=== PATIENT | female | born 1990 | race Hispanic/Latino ===

== ENCOUNTER 2018-10-31 17:54 | Emergency (ER) | payer SELFPAY ==
--- OUTSIDE RECORDS SUMMARY | 2018-10-31 17:56 | XMS REPORT ---
:1990 [facility] Address [address] [place] [address] Care Team Providers Name Role Phone Unavailable Unavailable Unavailable Problems This patient has no known problems. Allergies, Adverse Reactions, Alerts This patient has no known allergies or adverse reactions. Medications This patient has no known medications.
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
== END 2018-10-31 20:00 | disposition home or self-care (01) ==
LOC: ER 17:54
DX: O26.893 Other specified pregnancy related conditions, third trimester (principal); Z3A.35 35 weeks gestation of pregnancy
CPT/HCPCS: 99281

== ENCOUNTER 2018-11-01 19:00 | Emergency (ER) | payer SELFPAY ==
--- OUTSIDE RECORDS SUMMARY | 2018-11-01 19:02 | XMS REPORT ---
:1990 [facility] Address [address] [place] [address] Care Team Providers Name Role Phone Unavailable Unavailable Unavailable Problems This patient has no known problems. Allergies, Adverse Reactions, Alerts This patient has no known allergies or adverse reactions. Medications This patient has no known medications.
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
== END 2018-11-01 22:00 | disposition home or self-care (01) ==
LOC: ER 19:00
DX: O26.893 Other specified pregnancy related conditions, third trimester (principal); R07.9 Chest pain, unspecified; Z3A.30 30 weeks gestation of pregnancy
CPT/HCPCS: 71045; 99284

== ENCOUNTER 2021-12-02 00:50 | Emergency (ER) | payer OTHER, SELFPAY ==
[2021-12-02] MEDS ORDERED: AZITHROMYCIN 250 MG TAB ONE (01:34)
[2021-12-02] MEDS ORDERED: IBUPROFEN 200 MG TAB PO ONE (01:34)
[2021-12-02] MEDS ORDERED: IBUPROFEN 400 MG TAB ONE (01:35)
--- NOTE | 2021-12-02 02:51 | ER ---
Nurse's Notes [facility] Name: Ki Portillo Age: 30 yrs Sex: Female : 1990 Arrival Date: 12/02/2021 Time: 00:53 Bed 25 Private MD: Diagnosis: Coronavirus infection, unspecified;SARS-associated coronavirus as the cause of diseases classified elsewhere;Fever, unspecified;Acute pharyngitis, unspecified;Acute upper respiratory infection, unspecified Presentation: 12/02 01:05 Chief complaint: Patient states: "I am having body aches, and sore throat, and a runny as6 nose". Coronavirus screen: At this time, the client does not indicate any symptoms associated with coronavirus-19. Coronavirus screen: Client presents with at least one sign or symptom that may indicate coronavirus-19. At this time, the client does not indicate any symptoms associated with coronavirus-19. Ebola Screen: No symptoms or risks identified at this time. Initial Sepsis Screen: Does the patient meet any 2 criteria? No. Patient's initial sepsis screen is negative. Does the patient have a suspected source of infection? No. Patient's initial sepsis screen is negative. Risk Assessment: Do you want to hurt yourself or someone else? Patient reports no desire to harm self or others. Onset of symptoms was November 30, 2021. 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 - Social history:: Smoking status: Patient denies any tobacco usage or history of. Screenin:25 Abuse screen: Denies threats or abuse. Denies injuries from another. Nutritional as6 screening: No deficits noted. Tuberculosis screening: No symptoms or risk factors identified. Fall Risk None identified. Assessment: 01:25 General: Appears in no apparent distress. Behavior is calm, cooperative. Pain: as6 Complains of pain in generalized. Neuro: Level of Consciousness is awake, alert. Respiratory: Respiratory effort is even, unlabored. EENT: Reports nasal congestion. 02:50 Reassessment: Patient states feeling better. Patient states symptoms have improved. tw5 General: Appears in no apparent distress. Vital Signs: 01:05 BP 113 / 71; Pulse 92; Resp 19 S; Temp 98.6(O); Pulse Ox 97% on R/A; Weight 63.5 kg as6 (R); Height 5 ft. 1 in. (154.94 cm) (R); Pain 8/10; 01:05 Body Mass Index 26.45 (63.50 kg, 154.94 cm) as6 ED Course: 00:53 Patient arrived in ED. ja2 01:09 Triage completed. 01:10 Arm band placed on. 01:13 He Fischer, RN is Primary Nurse. 01:13 Jeison Sun MD is Attending Physician. [facility] 01:26 Bed in low position. Call light in reach. 03:01 No provider procedures requiring assistance completed. Patient did not have IV access tw5 during this emergency room visit. Administered Medications: 01:28 Drug: Zithromax (azithromycin) 500 mg Route: PO; as6 02:51 Follow up: Response: No adverse reaction tw 01:28 Drug: Motrin (ibuprofen) 600 mg Route: PO; as 02:51 Follow up: Response: No adverse reaction tw 02:51 Drug: Pepcid (famotidine) 40 mg Route: PO; tw 03:02 Follow up: Response: No adverse reaction tw 02:51 Drug: Aspirin 81 mg Route: PO; tw 03:02 Follow up: Response: No adverse reaction tw Medication: 03:01 VIS not applicable for this client. tw5 Outcome: 02:50 Discharge ordered by . shamika 03:01 Discharged to home ambulatory. tw 03:01 Condition: improved 03:01 Discharge instructions given to patient, Instructed on discharge instructions, follow up and referral plans. Demonstrated understanding of instructions, follow-up care, medications, Prescriptions given X 3. 03:02 Patient left the ED. tw5 Signatures: Jeison Sun MD MD cha Alexander, Jessica ja2 Wood, Tiffany tw5 He Fischer, RN RN as6
--- NOTE | 2021-12-02 02:52 | EDPHYS ---
Physician Documentation [facility] Name: Ki Portillo Age: 30 yrs Sex: Female : 1990 Arrival Date: 12/02/2021 Time: 00:53 Bed 25 Private MD: DIXIE Physician Jeison Sun HPI: 12/02 02:43 This 30 yrs old Female presents to ER via Ambulatory with complaints of Sore shamika Throat, Body Aches, Fever, Chest Congestion, Low Back Pain, Chest Pain. 02:43 The patient presents with sore throat. The patient describes throat pain as constant. shamika Onset: The symptoms/episode began/occurred 1 day(s) ago. Severity of symptoms: At their worst the symptoms were mild, in the emergency department the symptoms are unchanged. Modifying factors: The symptoms are alleviated by. Associated signs and symptoms: The patient has no apparent associated signs or symptoms. The patient has not experienced similar symptoms in the past. 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 - Social history:: Smoking status: Patient denies any tobacco usage or history of. ROS: 02:44 Constitutional: Negative for fever, chills, and weight loss, Eyes: Negative for injury, shamika pain, redness, and discharge, Neck: Negative for injury, pain, and swelling, Cardiovascular: Negative for chest pain, palpitations, and edema, Abdomen/GI: Negative for abdominal pain, nausea, vomiting, diarrhea, and constipation, Back: Negative for injury and pain, : Negative for injury, bleeding, discharge, and swelling, MS/Extremity: Negative for injury and deformity, Skin: Negative for injury, rash, and discoloration, Neuro: Negative for headache, weakness, numbness, tingling, and seizure. 02:44 ENT: Positive for nasal discharge, sore throat. Exam: 02:44 Constitutional: This is a well developed, well nourished patient who is awake, alert, shamika and in no acute distress. Head/Face: Normocephalic, atraumatic. Eyes: Pupils equal round and reactive to light, extra-ocular motions intact. Lids and lashes normal. Conjunctiva and sclera are non-icteric and not injected. Cornea within normal limits. Periorbital areas with no swelling, redness, or edema. Neck: Trachea midline, no thyromegaly or masses palpated, and no cervical lymphadenopathy. Supple, full range of motion without nuchal rigidity, or vertebral point tenderness. No Meningismus. Chest/axilla: Normal chest wall appearance and motion. Nontender with no deformity. No lesions are appreciated. Cardiovascular: Regular rate and rhythm with a normal S1 and S2. No gallops, murmurs, or rubs. Normal PMI, no JVD. No pulse deficits. Respiratory: Lungs have equal breath sounds bilaterally, clear to auscultation and percussion. No rales, rhonchi or wheezes noted. No increased work of breathing, no retractions or nasal flaring. Abdomen/GI: Soft, non-tender, with normal bowel sounds. No distension or tympany. No guarding or rebound. No evidence of tenderness throughout. Back: No spinal tenderness. No costovertebral tenderness. Full range of motion. Skin: Warm, dry with normal turgor. Normal color with no rashes, no lesions, and no evidence of cellulitis. MS/ Extremity: Pulses equal, no cyanosis. Neurovascular intact. Full, normal range of motion. Neuro: Awake and alert, GCS 15, oriented to person, place, time, and situation. Cranial nerves II-XII grossly intact. Motor strength 5/5 in all extremities. Sensory grossly intact. Cerebellar exam normal. Normal gait. 02:44 ENT: Posterior pharynx: Tonsils: are normal in appearance, Uvula: midline, erythema, swelling, is not appreciated, erythema, that is mild, exudate, is not appreciated, peritonsillar mass, is not appreciated, pooling of secretions, is not appreciated. Vital Signs: 01:05 BP 113 / 71; Pulse 92; Resp 19 S; Temp 98.6(O); Pulse Ox 97% on R/A; Weight 63.5 kg as6 (R); Height 5 ft. 1 in. (154.94 cm) (R); Pain 8/10; 01:05 Body Mass Index 26.45 (63.50 kg, 154.94 cm) as6 MDM: 01:13 Patient medically screened. shamika 02:46 Differential diagnosis: Allergic rhinitis, bronchitis, viral Infection, bacterial shamika infection, URI, bronchitis, UTI, group A strep tonsillitis, influenza, peritonsillar abscess pharyngitis, tonsillitis, upper respiratory infection, uvulitis. Differential Diagnosis sepsis. Data reviewed: vital signs, nurses notes, lab test result(s), CBC, electrolytes, hepatic panel. Data interpreted: case management director: rate is 92 beats/min, rhythm is regular, Pulse oximetry: on room air is 91 %. 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 12/02 01:11 Order name: Flu; Complete Time: 02:32 as6 12/02 01:11 Order name: Strep; Complete Time: 02:32 as6 12/02 01:16 Order name: Group A Streptococcus Rapid Sc; Complete Time: 02:32 EDMS 12/02 02:16 Order name: Throat Culture EDMS Administered Medications: 01:28 Drug: Zithromax (azithromycin) 500 mg Route: PO; as6 02:51 Follow up: Response: No adverse reaction tw5 01:28 Drug: Motrin (ibuprofen) 600 mg Route: PO; as6 02:51 Follow up: Response: No adverse reaction tw5 02:51 Drug: Pepcid (famotidine) 40 mg Route: PO; tw5 03:02 Follow up: Response: No adverse reaction tw5 02:51 Drug: Aspirin 81 mg Route: PO; tw5 03:02 Follow up: Response: No adverse reaction tw5 Disposition Summary: 12/02/21 02:50 Discharge Ordered Location: Home shamika Problem: new shamika Symptoms: have improved shamika Condition: Stable shamika Diagnosis - Coronavirus infection, unspecified shamika - SARS-associated coronavirus as the cause of diseases classified elsewhere shamika - Fever, unspecified shamika - Acute pharyngitis, unspecified shamika - Acute upper respiratory infection, unspecified shamika Followup: shamika - With: Private Physician - When: 2 - 3 days - Reason: Recheck today's complaints, Continuance of care, Re-evaluation by your physician Discharge Instructions: - Discharge Summary Sheet [facility] - Pharyngitis shamika - Upper Respiratory Infection, Adult shamika - Cool Mist Vaporizer shamika - Upper Respiratory Infection, Adult, [id number] shamika - Aspirin and Your Heart shamika - Cough, Adult shamika - Sore Throat, [id number] shamika - Fever, Adult, Bfqw-[id number]-Omst shamika - COVID-19 [facility] - COVID-19 Frequently Asked Questions [facility] - Things to Know about the COVID-19 Pandemic - [facility] - 10 Things You Can Do to Manage Your COVID-19 Symptoms at Home - [facility] - Viral Illness, Adult [facility] - COVID-19: Quarantine vs. Isolation - [facility] - Prevent the Spread of COVID-19 if You Are Sick - [facility] Forms: - Medication Reconciliation Form [facility] - Thank You Letter [facility] - Antibiotic Education [facility] - Prescription Opioid Use [facility] Prescriptions: - Pepcid 20 mg Oral Tablet - take 1 tablet by ORAL route every 12 hours for 21 days; 42 tablet; Refills: 0, [facility] Product Selection Permitted - Zithromax Z-Stiven 250 mg Oral Tablet - take 1 tablet by ORAL route as directed for 5 days Day 1 - take two (2) tablets shamika one time. Day 2, 3, 4 , 5 take one (1) tablet once daily.; 6 tablet; Refills: 0, Product Selection Permitted - Tessalon Perles 100 mg Oral Capsule - take 2 capsule by ORAL route every 8 hours As needed; 36 capsule; Refills: 0, [facility] Product Selection Permitted Signatures: Dispatcher [employer] Jeison Carranza MD MD cha Wood, Tiffany tw5 He Fischer RN RN as6 Corrections: (The following items were deleted from the chart) 01:31 01:15 SARS-COV-2 Antigen Rapid+I.LAB.BRZ ordered. INES CHACON
[2021-12-02] MEDS ORDERED: ASPIRIN EC 81 MG TAB PO ONE (02:56)
[2021-12-02] MEDS ORDERED: FAMOTIDINE 20 MG TAB ONE (02:57)
[2021-12-02 05:47] VITALS: BP 113/71; TEMP 98.6; O2SAT 97
== END 2021-12-02 03:02 | disposition home or self-care (01) ==
LOC: ER 00:50
DX: U07.1 COVID-19 (principal); J02.9 Acute pharyngitis, unspecified
CPT/HCPCS: 87070; 87081; 87804; 99283; U0003

== ENCOUNTER 2022-05-01 18:38 | Emergency (ER) | payer SELFPAY ==
--- NOTE | 2022-05-01 20:02 | RAD REPORT ---
EXAM DESCRIPTION: RAD - Foot Left 3 View - 05/01/2022 7:52 pm CLINICAL HISTORY: Left Foot pain FINDINGS: No fracture or dislocation is seen.
[2022-05-01 20:17] LABS: Urine Blood Negative (Negative); Urine Glucose Negative (Negative); Urine Protein Negative (Negative); Urine Specific Gravity >=1.030 (1.005-1.030); Urine pH 5.5 (5.0-7.0)
[2022-05-01 21:02] LABS: Specific Gravity 1.027 (1.005-1.030); Urine Bacteria None Seen /HPF (<20); Urine Bilirubin NEGATIVE (Negative); Urine Blood Negative (Negative); Urine Clarity Clear (Clear); Urine Color Light-Yellow (Yellow); Urine Glucose NEGATIVE (Negative); Urine Mucus 1+ /HPF (None Seen); Urine Protein NEGATIVE (Negative); Urine RBC <5 /HPF (None Seen); Urine Urobilinogen Normal (Normal); Urine pH 5.5 (5.0-7.0)
[2022-05-01 21:04] LABS: Urine Specific Gravity/Preg >1.030 (1.005-1.030)
--- NOTE | 2022-05-01 21:08 | ER ---
Nurse's Notes [facility] Name: Ki Portillo Age: 31 yrs Sex: Female : 1990 Arrival Date: 05/01/2022 Time: 18:40 Bed 15 Private MD: Diagnosis: Pain in left foot Presentation: 05/01 18:50 Chief complaint: Patient states: i jumped out of the truck about a month ago and had on ko1 sandles, I landed wrong and my left heel hurts and is getting worse. Also, I am peeing a lot more at night and have little white floaters in my urine. Coronavirus screen: Vaccine status: Patient reports being unvaccinated. Ebola Screen: No symptoms or risks identified at this time. Initial Sepsis Screen: Does the patient meet any 2 criteria? No. Patient's initial sepsis screen is negative. Does the patient have a suspected source of infection? No. Patient's initial sepsis screen is negative. Risk Assessment: Do you want to hurt yourself or someone else? Patient reports no desire to harm self or others. Onset of symptoms is unknown. 18:50 Method Of Arrival: Ambulatory ko1 18:50 Acuity: CHARLIE 4 ko1 Triage Assessment: 18:53 General: Appears in no apparent distress. comfortable, Behavior is calm, cooperative, ko1 appropriate for age. Pain: Complains of pain in heel of left foot. Musculoskeletal: Reports pain in heel of left foot. 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 - Social history:: Smoking status: Patient denies any tobacco usage or history of. Screenin:48 [facility] ED Fall Risk Assessment (Adult) Score/Fall Risk Level 0 - 2 = Low Risk. Abuse eh3 screen: Denies threats or abuse. Denies injuries from another. Nutritional screening: No deficits noted. Tuberculosis screening: No symptoms or risk factors identified. Vital Signs: 18:50 BP 131 / 79; Pulse 83; Resp 18; Temp 98.2; Pulse Ox 99% ; Weight 70.76 kg; Height 5 ft. ko1 1 in. (154.94 cm); Pain 3/10; 18:50 Body Mass Index 29.48 (70.76 kg, 154.94 cm) ko1 ED Course: 18:40 Patient arrived in ED. am2 18:53 Triage completed. ko1 18:53 Arm band placed on right wrist. Patient placed in waiting room, Patient notified of ko1 wait time. 19:05 Martin Ren MD is Attending Physician. jr11 19:54 Foot Left 3 View XRAY In Process Unspecified. EDMS 21:09 Nelson Morillo MD is Referral Physician. jr11 21:48 Patient has correct armband on for positive identification. eh3 21:48 No provider procedures requiring assistance completed. Patient did not have IV access eh3 during this emergency room visit. Administered Medications: No medications were administered Medication: 21:48 VIS not applicable for this client. eh3 Outcome: 21:07 Discharge ordered by . jr11 21:49 Discharged to home ambulatory. eh3 21:49 Condition: stable 21:49 Discharge instructions given to patient, Instructed on discharge instructions, follow up and referral plans. medication usage, Demonstrated understanding of instructions, follow-up care, medications, Prescriptions given X 1. 21:49 Patient left the ED. eh3 Signatures: Dispatcher [employer] EDMS Arianne Kwok am2 Martin Ren MD MD jr11 Veronica Arnett, RN RN eh3 Susan Mena, RN RN ko1
--- NOTE | 2022-05-01 21:08 | EDPHYS ---
Physician Documentation [facility] Name: Ki Portillo Age: 31 yrs Sex: Female : 1990 Arrival Date: 05/01/2022 Time: 18:40 Bed 15 Private MD: ED Physician Martin Ren HPI: 05/01 19:17 Patient is a 31-year-old with no significant past medical history here for 2 jr11 complaints. First complaint is left-sided heel pain, she states she stepped out of high trunk and has been having intermittent heel pain since then. Pain is mild to moderate, worse at the end of the day and with ambulation. Denies any other trauma or any other history of pain to this heel prior to the injury. Patient also with frequency of urination and urgency, this she said started about a week ago, denies any abdominal pain, no nausea vomiting normal bowel movements no hematuria. Patient otherwise at baseline.. 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 - Social history:: Smoking status: Patient denies any tobacco usage or history of. ROS: 19:17 All other systems are negative. jr11 Exam: 19:17 Constitutional: This is a well developed, well nourished patient who is awake, alert, jr11 and in no acute distress. Head/Face: Normocephalic, atraumatic. Eyes: Extra-ocular motions intact. Lids and lashes normal. Conjunctiva and sclera are non-icteric and not injected. Cornea within normal limits. Periorbital areas with no swelling, redness, or edema. ENT: Nares patent. No nasal discharge, no septal abnormalities noted. Oropharynx with no redness, swelling, or masses, exudates, or evidence of obstruction, uvula midline. Mucous membranes moist. Neck: Trachea midline, no thyromegaly or masses palpated, and no cervical lymphadenopathy. Supple, full range of motion without nuchal rigidity, or vertebral point tenderness. No Meningismus. Chest/axilla: Normal chest wall appearance and motion. Nontender with no deformity. No lesions are appreciated. Cardiovascular: Regular rate and rhythm with a normal S1 and S2. No gallops, murmurs, or rubs. Normal PMI, no JVD. No pulse deficits. Respiratory: Lungs have equal breath sounds bilaterally, clear to auscultation and percussion. No rales, rhonchi or wheezes noted. No increased work of breathing, no retractions or nasal flaring. Abdomen/GI: Soft, non-tender, with normal bowel sounds. No distension or tympany. No guarding or rebound. No evidence of tenderness throughout. MS/ Extremity: Pulses equal, no cyanosis. Neurovascular intact. Full, normal range of motion with L heel TTP, no sign of trauma Vital Signs: 18:50 BP 131 / 79; Pulse 83; Resp 18; Temp 98.2; Pulse Ox 99% ; Weight 70.76 kg; Height 5 ft. ko1 1 in. (154.94 cm); Pain 3/10; 18:50 Body Mass Index 29.48 (70.76 kg, 154.94 cm) ko1 MDM: 19:11 Patient medically screened. [facility] 19:17 Differential diagnosis: fracture, sprain, arthritis, UTI, contusion, sprain. [facility] Differential diagnosis: doubt pelvic infection, no vaginal discharge and last week no STDs, denies concern or high risk behavior. Data reviewed: vital signs, nurses notes. Test considered but Not performed: CT: no abd pain, normal vitals. 21:09 I considered the following discharge prescriptions or medication management in the [facility] emergency department Pain Medications: At this time, prescription pain medications are not recommended. Independent interpretation of the following test(s) in the Emergency Department X-Ray: My interpretation is no fx. 05/01 19:11 Order name: Foot Left 3 View XRAY; Complete Time: 20:05 [facility] 05/01 20:17 Order name: Urine Dipstick-Ancillary; Complete Time: 20:54 EDMS 05/01 20:49 Order name: Urine --Ancillary (enter results); Complete Time: 21:05 05/01 21:02 Order name: Urinalysis W/Microscopic; Complete Time: 21:05 EDMS Administered Medications: No medications were administered Disposition Summary: 05/01/22 21:07 Discharge Ordered Location: Home [facility] Condition: Stable [facility] Diagnosis - Pain in left foot [facility] Followup: [facility] - With: Nelson Morillo MD - When: 2 - 3 days - Reason: Re-evaluation by your physician Discharge Instructions: - Discharge Summary Sheet jr11 - Musculoskeletal Pain jr11 - Foot Pain jr11 Forms: - Medication Reconciliation Form jr11 - Thank You Letter jr11 - Antibiotic Education jr11 - Prescription Opioid Use jr11 Prescriptions: - Ibuprofen 600 mg Oral Tablet - take 1 tablet by ORAL route every 6 hours As needed take with food; 30 tablet; jr11 Refills: 0, Product Selection Permitted Signatures: Dispatcher [employer] EDMS Martin Ren MD MD jr11 Susan Mena RN RN ko1 Corrections: (The following items were deleted from the chart) 20:49 19:06 URINALYSIS+U.LAB.BRZ ordered. EDMS EDMS 21:02 19:06 UA MICROSCOPIC+U.LAB.BRZ ordered. EDMS EDMS
[2022-05-01 22:28] VITALS: BP 131/79; TEMP 98.2; O2SAT 99
== END 2022-05-01 21:49 | disposition home or self-care (01) ==
LOC: ER 18:38
DX: M79.672 Pain in left foot (principal); R35.0 Frequency of micturition
CPT/HCPCS: 81001; 81003; 81025; 99283

== ENCOUNTER 2023-11-02 15:30 | Emergency (ER) | payer SELFPAY ==
--- OUTSIDE RECORDS SUMMARY | 2023-11-02 15:36 | XMS REPORT | Continuity of Care Document ---
Author Name Unknown Address [address] [place] [address] [facility] Address [address] [place] [address] Care Team Providers Care Nurse Navigator Name Role Phone Mel Chavez Primary Care Physicia n MEL PACHECO Attending Clinician Unavail able Visit, Nisha Nurse Attending Clinician Unava ilable Mel Chavez Attending Clinician + Doctor Unassigned, [place] Attending Clinician U JAIMIE Alegre Attending Clinician UnavailTonya Leon Attending Clinician [phone] TONYA SHAFFER Attending Clinician Unavailab Rios Nurse Vst, Fp Nrpt Pills Class Attendi ng Clinician Unavailable Nurse, Aston Santos [facility] Attending Clini ameya Unavailable Provider, Nisha Temp Attending Clinician Jaimie Santos CNM Attending Clinician [phone] Payers Payer Name Policy Type Policy Number Effective Date Expirati on Date Source Problems Condition Name Condition Details Condition Category Status Onset Date Resolution Date Last Treatment Date Treating Clinician Comments Source Need for HPV vaccinatio n Need for HPV vaccinatio n Disease Active 2022-03 00:00: 00 [facility] Other general counseling and advice for contracept flaquito management Other general counseling and advice for contracept flaquito management Disease Active 09-02 00:00: 00 [facility] Cervical high risk human papillomav irus (HPV) DNA test positive Cervical high risk human papillomav irus (HPV) DNA test positive Disease Active 05-21 00:00: 00 Overview: Formattin g of this note might be different from the original. 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 04/2022 ASCUS with +HPV, repeat # 1 (04/2023) - ASCUS with HPV +. No MAYE noted on colposcop y bx. Needs repeat co-testin g in 12 months (04/2024) . [facility] Obesity (BMI 30-39.9) Obesity (BMI 30-39.9) Disease Active 05-19 00:00: 00 [facility] Psoriasis Psoriasis Disease Active 05-19 00:00: 00 [facility] Allergies, Adverse Reactions, Alerts Allergy Name Allergy Type Status Severity Reaction(s) Onset Date Inactive Date Treating Clinician Comments Source NO KNOWN ALLERGIE S Drug Class Active [facility] Social History Social Habit Start Date Stop Date Quantity Comments Source Gender identity [facility] intake 2023-10-18 00:00:00 2023-10-18 00:00:00 Ex-drinker (finding) [facility] Alcohol intake 2023-06-17 00:00:00 2023-06-17 00:00:00 Ex-drinker (finding) [facility] History of Social function 2023-06-17 00:00:00 2023-06-17 00:00:00 [facility] Exposure to SARS-CoV-2 (event) 2022-08-07 00:00:00 2022-08-17 12:52:00 Not sure [facility] Tobacco use and exposure 2022-05-19 00:00:00 2022-05-19 00:00:00 Smokeless tobacco non-user [facility] Sex assigned at 1990 00:00:00 1990 00:00:00 [facility] Smoking Status Start Date Stop Date Source Tobacco smoking consumption unknown [facility] Never smoked tobacco [facility] Medications Ordered Medication Name Filled Medication Name Start Date Stop Date Current Medication? Ordering Clinician Indication Dosage Frequency Signature (SIG) Comments Components Source medroxyPROG ESTERone (DEPO-PROVE RA) syringe 150 mg 4-08 05:00: 00 06-05 04:59 :00 No [id number] 150mg 150 mg, Intramuscu lar, [id number], 4 doses, First dose on Wed07/05/23 at 0000, Last dose on Wed03/13/24 at 0000, Routine [facility] metroNIDAZO LE (FLAGYL) 500 mg tablet 06-16 00:00: 00 06-24 04:59 :00 No [id number] 500mg Take 1 tablet by mouth in the morning and 1 tablet in the evening. Do all this for 7 days. [facility] medroxyPROG ESTERone (DEPO-PROVE RA) syringe 150 mg 2-05 17:45: 00 05-03 17:01 :00 No [id number] [facility] medroxyPROG ESTERone (DEPO-PROVE RA) syringe 150 mg 09-02 20:45: 00 02-08 14:36 :00 No [id number] [facility] levonorgest rel-ethinyl estradiol (, 28,) 0.15-0.03 mg per tablet 05-19 00:00: 00 05-26 00:00 :00 No [id number] 1{tbl} Take 1 tablet by mouth in the morning. [facility] Immunizations Ordered Immunization Name Filled Immunization Name Date Status Comments Source HPV9 2022-10-19 00:00:00 Completed [facility] HPV9 2022-10-19 00:00:00 Completed [facility] HPV9 2022-10-19 00:00:00 Completed [facility] 2022-08-17 00:00:00 Completed [facility] HPV9 2022-08-17 00:00:00 Completed [facility] HPV9 2022-08-17 00:00:00 Completed [facility] HPV9 2022-08-17 00:00:00 Completed [facility] HPV9 2022-08-17 00:00:00 Completed [facility] HPV9 2022-08-17 00:00:00 Completed [facility] HPV9 2022-08-17 00:00:00 Completed [facility] HEP B, Adult Dosage 2022-07-13 00:00:00 Completed [facility] HEP B, Adult Dosage 2022-07-13 00:00:00 Completed [facility] HEP B, Adult Dosage 2022-07-13 00:00:00 Completed [facility] HEP B, Adult Dosage 2022-07-13 00:00:00 Completed [facility] HEP B, Adult Dosage 2022-07-13 00:00:00 Completed [facility] HEP B, Adult Dosage 2022-07-13 00:00:00 Completed [facility] HEP B, Adult Dosage 2022-07-13 00:00:00 Completed [facility] Hep B, Unspecified Formulation 2022-05-12 00:00:00 Completed [facility] TD, NOS 2022-05-12 00:00:00 Completed [facility] Hep B, Unspecified Formulation 2022-05-12 00:00:00 Completed [facility] TD, NOS 2022-05-12 00:00:00 Completed [facility] Hep B, Unspecified Formulation 2022-05-12 00:00:00 Completed [facility] TD, NOS 2022-05-12 00:00:00 Completed [facility] Hep B, Unspecified Formulation 2022-05-12 00:00:00 Completed [facility] TD, NOS 2022-05-12 00:00:00 Completed [facility] Hep B, Unspecified Formulation 2022-05-12 00:00:00 Completed [facility] TD, NOS 2022-05-12 00:00:00 Completed [facility] Hep B, Unspecified Formulation 2022-05-12 00:00:00 Completed [facility] TD, NOS 2022-05-12 00:00:00 Completed [facility] Hep B, Unspecified Formulation 2022-05-12 00:00:00 Completed [facility] TD, NOS 2022-05-12 00:00:00 Completed [facility] DTaP, Unspecified Formulation 2001-01-27 00:00:00 Completed [facility] DTaP, Unspecified Formulation 2001-01-27 00:00:00 Completed [facility] DTaP, Unspecified Formulation 2001-01-27 00:00:00 Completed [facility] DTaP, Unspecified Formulation 2001-01-27 00:00:00 Completed [facility] DTaP, Unspecified Formulation 2001-01-27 00:00:00 Completed [facility] DTaP, Unspecified Formulation 2001-01-27 00:00:00 Completed [facility] DTaP, Unspecified Formulation 2001-01-27 00:00:00 Completed [facility] Hep B, Unspecified Formulation 2001-01-26 00:00:00 Completed [facility] Varicella (varivax)(chicken pox) 2001-01-26 00:00:00 Completed [facility] HEPA,NOS 2001-01-26 00:00:00 Completed [facility] Hep B, Unspecified Formulation 2001-01-26 00:00:00 Completed [facility] Varicella (varivax)(chicken pox) 2001-01-26 00:00:00 Completed [facility] HEPA,NOS 2001-01-26 00:00:00 Completed [facility] Hep B, Unspecified Formulation 2001-01-26 00:00:00 Completed [facility] Varicella (varivax)(chicken pox) 2001-01-26 00:00:00 Completed [facility] HEPA,NOS 2001-01-26 00:00:00 Completed [facility] Hep B, Unspecified Formulation 2001-01-26 00:00:00 Completed [facility] Varicella (varivax)(chicken pox) 2001-01-26 00:00:00 Completed [facility] HEPA,NOS 2001-01-26 00:00:00 Completed [facility] Hep B, Unspecified Formulation 2001-01-26 00:00:00 Completed [facility] Varicella (varivax)(chicken pox) 2001-01-26 00:00:00 Completed [facility] HEPA,NOS 2001-01-26 00:00:00 Completed [facility] Hep B, Unspecified Formulation 2001-01-26 00:00:00 Completed [facility] Varicella (varivax)(chicken pox) 2001-01-26 00:00:00 Completed [facility] HEPA,NOS 2001-01-26 00:00:00 Completed [facility] Hep B, Unspecified Formulation 2001-01-26 00:00:00 Completed [facility] Varicella (varivax)(chicken pox) 2001-01-26 00:00:00 Completed [facility] HEPA,NOS 2001-01-26 00:00:00 Completed [facility] MMR 1995-08-18 00:00:00 Completed [facility] Polio (IPV/OPV) 1995-08-18 00:00:00 Completed [facility] DTaP, Unspecified Formulation 1995-08-18 00:00:00 Completed [facility] MMR 1995-08-18 00:00:00 Completed [facility] Polio (IPV/OPV) 1995-08-18 00:00:00 Completed [facility] DTaP, Unspecified Formulation 1995-08-18 00:00:00 Completed [facility] MMR 1995-08-18 00:00:00 Completed [facility] Polio (IPV/OPV) 1995-08-18 00:00:00 Completed [facility] DTaP, Unspecified Formulation 1995-08-18 00:00:00 Completed [facility] MMR 1995-08-18 00:00:00 Completed [facility] Polio (IPV/OPV) 1995-08-18 00:00:00 Completed [facility] DTaP, Unspecified Formulation 1995-08-18 00:00:00 Completed [facility] MMR 1995-08-18 00:00:00 Completed [facility] Polio (IPV/OPV) 1995-08-18 00:00:00 Completed [facility] DTaP, Unspecified Formulation 1995-08-18 00:00:00 Completed [facility] MMR 1995-08-18 00:00:00 Completed [facility] Polio (IPV/OPV) 1995-08-18 00:00:00 Completed [facility] DTaP, Unspecified Formulation 1995-08-18 00:00:00 Completed [facility] MMR 1995-08-18 00:00:00 Completed [facility] Polio (IPV/OPV) 1995-08-18 00:00:00 Completed [facility] DTaP, Unspecified Formulation 1995-08-18 00:00:00 Completed [facility] MMR 1994-12-31 00:00:00 Completed [facility] Polio (IPV/OPV) 1994-12-31 00:00:00 Completed [facility] DTaP, Unspecified Formulation 1994-12-31 00:00:00 Completed [facility] MMR 1994-12-31 00:00:00 Completed [facility] Polio (IPV/OPV) 1994-12-31 00:00:00 Completed [facility] DTaP, Unspecified Formulation 1994-12-31 00:00:00 Completed [facility] MMR 1994-12-31 00:00:00 Completed [facility] Polio (IPV/OPV) 1994-12-31 00:00:00 Completed [facility] DTaP, Unspecified Formulation 1994-12-31 00:00:00 Completed [facility] MMR 1994-12-31 00:00:00 Completed [facility] Polio (IPV/OPV) 1994-12-31 00:00:00 Completed [facility] DTaP, Unspecified Formulation 1994-12-31 00:00:00 Completed [facility] MMR 1994-12-31 00:00:00 Completed [facility] Polio (IPV/OPV) 1994-12-31 00:00:00 Completed [facility] DTaP, Unspecified Formulation 1994-12-31 00:00:00 Completed [facility] MMR 1994-12-31 00:00:00 Completed [facility] Polio (IPV/OPV) 1994-12-31 00:00:00 Completed [facility] DTaP, Unspecified Formulation 1994-12-31 00:00:00 Completed [facility] MMR 1994-12-31 00:00:00 Completed [facility] Polio (IPV/OPV) 1994-12-31 00:00:00 Completed [facility] DTaP, Unspecified Formulation 1994-12-31 00:00:00 Completed [facility] Polio (IPV/OPV) 1990-04-29 00:00:00 Completed [facility] DTaP, Unspecified Formulation 1990-04-29 00:00:00 Completed [facility] Polio (IPV/OPV) 1990-04-29 00:00:00 Completed [facility] DTaP, Unspecified Formulation 1990-04-29 00:00:00 Completed [facility] Polio (IPV/OPV) 1990-04-29 00:00:00 Completed [facility] DTaP, Unspecified Formulation 1990-04-29 00:00:00 Completed [facility] Polio (IPV/OPV) 1990-04-29 00:00:00 Completed [facility] DTaP, Unspecified Formulation 1990-04-29 00:00:00 Completed [facility] Polio (IPV/OPV) 1990-04-29 00:00:00 Completed [facility] DTaP, Unspecified Formulation 1990-04-29 00:00:00 Completed [facility] Polio (IPV/OPV) 1990-04-29 00:00:00 Completed [facility] DTaP, Unspecified Formulation 1990-04-29 00:00:00 Completed [facility] Polio (IPV/OPV) 1990-04-29 00:00:00 Completed [facility] DTaP, Unspecified Formulation 1990-04-29 00:00:00 Completed [facility] Polio (IPV/OPV) Unknown [facility]) [facility] TD, NOS Unknown Completed [facility] Varicella (varivax)(chicken pox) Unknown Completed [facility] HPV9 Unknown Completed [facility] HPV9 Unknown Completed [facility] TDAP Unknown Completed [facility] Influenza Virus Vaccine Quad .5 mL IM 6+ MO (FLUZONE/FLULAVAL/F LUARIX) Unknown Completed [facility] TD, NOS Unknown Completed [facility] HPV9 Unknown Completed [facility] DTaP, Unspecified Formulation Unknown Completed [facility] DTaP, Unspecified Formulation Unknown Completed [facility] DTaP, Unspecified Formulation Unknown Completed [facility] DTaP, Unspecified Formulation Unknown Completed [facility] HEPA,NOS Unknown Completed [facility] Hep B, Unspecified Formulation Unknown Completed [facility] Hep B, Unspecified Formulation Unknown Completed [facility] HEP B, Adult Dosage Unknown Completed [facility] MMR Unknown Completed [facility] MMR Unknown Completed [facility] Polio (IPV/OPV) Unknown Completed [facility] Polio (IPV/OPV) Unknown Completed [facility] Polio (IPV/OPV) Unknown Completed [facility] TD, NOS Unknown Completed [facility] Varicella (varivax)(chicken pox) Unknown Completed [facility] HPV9 Unknown Completed [facility] HPV9 Unknown Completed [facility] TDAP Unknown Completed [facility] Influenza Virus Vaccine Quad .5 mL IM 6+ MO (FLUZONE/FLULAVAL/F LUARIX) Unknown Completed [facility] TD, NOS Unknown Completed [facility] HPV9 Unknown Completed [facility] DTaP, Unspecified Formulation Unknown Completed [facility] DTaP, Unspecified Formulation Unknown Completed [facility] DTaP, Unspecified Formulation Unknown Completed [facility] DTaP, Unspecified Formulation Unknown Completed [facility] HEPA,NOS Unknown Completed [facility] Hep B, Unspecified Formulation Unknown Completed [facility] Hep B, Unspecified Formulation Unknown Completed [facility] HEP B, Adult Dosage Unknown Completed [facility] MMR Unknown Completed [facility] MMR Unknown Completed [facility] Polio (IPV/OPV) Unknown Completed [facility] Polio (IPV/OPV) Unknown Completed [facility] Polio (IPV/OPV) Unknown Completed [facility] TD, NOS Unknown Completed [facility] Varicella (varivax)(chicken pox) Unknown Completed [facility] HPV9 Unknown Completed [facility] HPV9 Unknown Completed [facility] TDAP Unknown Completed [facility] Influenza Virus Vaccine Quad .5 mL IM 6+ MO (FLUZONE/FLULAVAL/F LUARIX) Unknown Completed [facility] TD, NOS Unknown Completed [facility] HPV9 Unknown Completed [facility] DTaP, Unspecified Formulation Unknown Completed [facility] DTaP, Unspecified Formulation Unknown Completed [facility] DTaP, Unspecified Formulation Unknown Completed [facility] DTaP, Unspecified Formulation Unknown Completed [facility] HEPA,NOS Unknown Completed [facility] Hep B, Unspecified Formulation Unknown Completed [facility] Hep B, Unspecified Formulation Unknown Completed [facility] HEP B, Adult Dosage Unknown Completed [facility] MMR Unknown Completed [facility] MMR Unknown Completed [facility] Polio (IPV/OPV) Unknown Completed [facility] Polio (IPV/OPV) Unknown Completed [facility] Polio (IPV/OPV) Unknown Completed [facility] TD, NOS Unknown Completed [facility] Varicella (varivax)(chicken pox) Unknown Completed [facility] HPV9 Unknown Completed [facility] HPV9 Unknown Completed [facility] TDAP Unknown Completed [facility] Influenza Virus Vaccine Quad .5 mL IM 6+ MO (FLUZONE/FLULAVAL/F LUARIX) Unknown Completed [facility] TD, NOS Unknown Completed [facility] HPV9 Unknown Completed [facility] DTaP, Unspecified Formulation Unknown Completed [facility] DTaP, Unspecified Formulation Unknown Completed [facility] DTaP, Unspecified Formulation Unknown Completed [facility] DTaP, Unspecified Formulation Unknown Completed [facility] HEPA,NOS Unknown Completed [facility] Hep B, Unspecified Formulation Unknown Completed [facility] Hep B, Unspecified Formulation Unknown Completed [facility] HEP B, Adult Dosage Unknown Completed [facility] MMR Unknown Completed [facility] MMR Unknown Completed [facility] Polio (IPV/OPV) Unknown Completed [facility] Polio (IPV/OPV) Unknown Completed [facility] Polio (IPV/OPV) Unknown Completed [facility] TD, NOS Unknown Completed [facility] Varicella (varivax)(chicken pox) Unknown Completed [facility] HPV9 Unknown Completed [facility] HPV9 Unknown Completed [facility] TDAP Unknown Completed [facility] Influenza Virus Vaccine Quad .5 mL IM 6+ MO (FLUZONE/FLULAVAL/F LUARIX) Unknown Completed [facility] TD, NOS Unknown Completed [facility] HPV9 Unknown Completed [facility] DTaP, Unspecified Formulation Unknown Completed [facility] DTaP, Unspecified Formulation Unknown Completed [facility] DTaP, Unspecified Formulation Unknown Completed [facility] DTaP, Unspecified Formulation Unknown Completed [facility] HEPA,NOS Unknown Completed [facility] Hep B, Unspecified Formulation Unknown Completed [facility] Hep B, Unspecified Formulation Unknown Completed [facility] HEP B, Adult Dosage Unknown Completed [facility] MMR Unknown Completed [facility] MMR Unknown Completed [facility] Polio (IPV/OPV) Unknown Completed [facility] Polio (IPV/OPV) Unknown Completed [facility] Polio (IPV/OPV) Unknown Completed [facility] TD, NOS Unknown Completed [facility] Varicella (varivax)(chicken pox) Unknown Completed [facility] HPV9 Unknown Completed [facility] HPV9 Unknown Completed [facility] TDAP Unknown Completed [facility] Influenza Virus Vaccine Quad .5 mL IM 6+ MO (FLUZONE/FLULAVAL/F LUARIX) Unknown Completed [facility] TD, NOS Unknown Completed [facility] HPV9 Unknown Completed [facility] DTaP, Unspecified Formulation Unknown Completed [facility] DTaP, Unspecified Formulation Unknown Completed [facility] DTaP, Unspecified Formulation Unknown Completed [facility] DTaP, Unspecified Formulation Unknown Completed [facility] HEPA,NOS Unknown Completed [facility] Hep B, Unspecified Formulation Unknown Completed [facility] [facility] Hep B, Unspecified Formulation Unknown Completed [facility] HEP B, Adult Dosage Unknown Completed [facility] MMR Unknown Completed [facility] MMR Unknown Completed [facility] Polio (IPV/OPV) Unknown Completed [facility] Polio (IPV/OPV) Unknown Completed [facility] Polio (IPV/OPV) Unknown Completed [facility] TD, NOS Unknown Completed [facility] Varicella (varivax)(chicken pox) Unknown Completed [facility] HPV9 Unknown Completed [facility] HPV9 Unknown Completed [facility] TDAP Unknown Completed [facility] Influenza Virus Vaccine Quad .5 mL IM 6+ MO (FLUZONE/FLULAVAL/F LUARIX) Unknown Completed [facility] TD, NOS Unknown Completed [facility] HPV9 Unknown Completed [facility] DTaP, Unspecified Formulation Unknown Completed [facility] DTaP, Unspecified Formulation Unknown Completed [facility] DTaP, Unspecified Formulation Unknown Completed [facility] DTaP, Unspecified Formulation Unknown Completed [facility] HEPA,NOS Unknown Completed [facility] Hep B, Unspecified Formulation Unknown Completed [facility] Hep B, Unspecified Formulation Unknown Completed [facility] HEP B, Adult Dosage Unknown Completed [facility] MMR Unknown Completed [facility] MMR Unknown Completed [facility] Polio (IPV/OPV) Unknown Completed [facility] Polio (IPV/OPV) Unknown Completed [facility] Polio (IPV/OPV) Unknown Completed [facility] TD, NOS Unknown Completed [facility] Varicella (varivax)(chicken pox) Unknown Completed [facility] HPV9 Unknown Completed [facility] HPV9 Unknown Completed [facility] TDAP Unknown Completed [facility] Influenza Virus Vaccine Quad .5 mL IM 6+ MO (FLUZONE/FLULAVAL/F LUARIX) Unknown Completed [facility] TD, NOS Unknown Completed [facility] HPV9 Unknown Completed [facility] DTaP, Unspecified Formulation Unknown Completed [facility] DTaP, Unspecified Formulation Unknown Completed [facility] DTaP, Unspecified Formulation Unknown Completed [facility] DTaP, Unspecified Formulation Unknown Completed [facility] HEPA,NOS Unknown Completed [facility] Hep B, Unspecified Formulation Unknown Completed [facility] Hep B, Unspecified Formulation Unknown Completed [facility] HEP B, Adult Dosage Unknown Completed [facility] MMR Unknown Completed [facility] MMR Unknown Completed [facility] Polio (IPV/OPV) Unknown Completed [facility] Polio (IPV/OPV) Unknown Completed [facility] Polio (IPV/OPV) Unknown Completed [facility] TD, NOS Unknown Completed [facility] Varicella (varivax)(chicken pox) Unknown Completed [facility] HPV9 Unknown Completed [facility] HPV9 Unknown Completed [facility] TDAP Unknown Completed [facility] Influenza Virus Vaccine Quad .5 mL IM 6+ MO (FLUZONE/FLULAVAL/F LUARIX) Unknown Completed [facility] TD, NOS Unknown Completed [facility] HPV9 Unknown Completed [facility] DTaP, Unspecified Formulation Unknown Completed [facility] DTaP, Unspecified Formulation Unknown Completed [facility] DTaP, Unspecified Formulation Unknown Completed [facility] DTaP, Unspecified Formulation Unknown Completed [facility] HEPA,NOS Unknown Completed [facility] Hep B, Unspecified Formulation Unknown Completed [facility] Hep B, Unspecified Formulation Unknown Completed [facility] HEP B, Adult Dosage Unknown Completed [facility] MMR Unknown Completed [facility] MMR Unknown Completed [facility] Polio (IPV/OPV) Unknown Completed [facility] Polio (IPV/OPV) Unknown Completed [facility] Polio (IPV/OPV) Unknown Completed [facility] TD, NOS Unknown Completed [facility] Varicella (varivax)(chicken pox) Unknown Completed [facility] HPV9 Unknown Completed [facility] HPV9 Unknown Completed [facility] TDAP Unknown Completed [facility] Influenza Virus Vaccine Quad .5 mL IM 6+ MO (FLUZONE/FLULAVAL/F LUARIX) Unknown Completed [facility] TD, NOS Unknown Completed [facility] HPV9 Unknown Completed [facility] DTaP, Unspecified Formulation Unknown Completed [facility] DTaP, Unspecified Formulation Unknown Completed [facility] DTaP, Unspecified Formulation Unknown Completed [facility] DTaP, Unspecified Formulation Unknown Completed [facility] HEPA,NOS Unknown Completed [facility] Hep B, Unspecified Formulation Unknown Completed [facility] Hep B, Unspecified Formulation Unknown Completed [facility] HEP B, Adult Dosage Unknown Completed [facility] MMR Unknown Completed [facility] MMR Unknown Completed [facility] Polio (IPV/OPV) Unknown Completed [facility] Polio (IPV/OPV) Unknown Completed [facility] Polio (IPV/OPV) Unknown Completed [facility] TD, NOS Unknown Completed [facility] Varicella (varivax)(chicken pox) Unknown Completed [facility] HPV9 Unknown Completed [facility] HPV9 Unknown Completed [facility] TDAP Unknown Completed [facility] Influenza Virus Vaccine Quad .5 mL IM 6+ MO (FLUZONE/FLULAVAL/F LUARIX) Unknown Completed [facility] TD, NOS Unknown Completed [facility] HPV9 Unknown Completed [facility] DTaP, Unspecified Formulation Unknown Completed [facility] DTaP, Unspecified Formulation Unknown Completed [facility] DTaP, Unspecified Formulation Unknown Completed [facility] DTaP, Unspecified Formulation Unknown Completed [facility] HEPA,NOS Unknown Completed [facility] Hep B, Unspecified Formulation Unknown Completed [facility] Hep B, Unspecified Formulation Unknown Completed [facility] HEP B, Adult Dosage Unknown Completed [facility] MMR Unknown Completed [facility] MMR Unknown Completed [facility] Polio (IPV/OPV) Unknown Completed [facility] Polio (IPV/OPV) Unknown Completed [facility] Polio (IPV/OPV) Unknown Completed [facility] TD, NOS Unknown Completed [facility] Varicella (varivax)(chicken pox) Unknown Completed [facility] HPV9 Unknown Completed [facility] HPV9 Unknown Completed [facility] TDAP Unknown Completed [facility] Influenza Virus Vaccine Quad .5 mL IM 6+ MO (FLUZONE/FLULAVAL/F LUARIX) Unknown Completed [facility] TD, NOS Unknown Completed [facility] HPV9 Unknown Completed [facility] DTaP, Unspecified Formulation Unknown Completed [facility] DTaP, Unspecified Formulation Unknown Completed [facility] DTaP, Unspecified Formulation Unknown Completed [facility] DTaP, Unspecified Formulation Unknown Completed [facility] HEPA,NOS Unknown Completed [facility] Hep B, Unspecified Formulation Unknown Completed [facility] Hep B, Unspecified Formulation Unknown Completed [facility] HEP B, Adult Dosage Unknown Completed [facility] MMR Unknown Completed [facility] MMR Unknown Completed [facility] Polio (IPV/OPV) Unknown Completed [facility] Polio (IPV/OPV) Unknown Completed [facility] Polio (IPV/OPV) Unknown Completed [facility] TD, NOS Unknown Completed [facility] Varicella (varivax)(chicken pox) Unknown Completed [facility] HPV9 Unknown Completed [facility] HPV9 Unknown Completed [facility] TDAP Unknown Completed [facility] Influenza Virus Vaccine Quad .5 mL IM 6+ MO (FLUZONE/FLULAVAL/F LUARIX) Unknown Completed [facility] TD, NOS Unknown Completed [facility] HPV9 Unknown Completed [facility] DTaP, Unspecified Formulation Unknown Completed [facility] DTaP, Unspecified Formulation Unknown Completed [facility] DTaP, Unspecified Formulation Unknown Completed [facility] DTaP, Unspecified Formulation Unknown Completed [facility] HEPA,NOS Unknown Completed [facility] Hep B, Unspecified Formulation Unknown Completed [facility] Hep B, Unspecified Formulation Unknown Completed [facility] HEP B, Adult Dosage Unknown Completed [facility] MMR Unknown Completed [facility] MMR Unknown Completed [facility] Polio (IPV/OPV) Unknown Completed [facility] Polio (IPV/OPV) Unknown Completed [facility] Polio (IPV/OPV) Unknown Completed [facility] TD, NOS Unknown Completed [facility] Varicella (varivax)(chicken pox) Unknown Completed [facility] HPV9 Unknown Completed [facility] HPV9 Unknown Completed [facility] TDAP Unknown Completed [facility] Influenza Virus Vaccine Quad .5 mL IM 6+ MO (FLUZONE/FLULAVAL/F LUARIX) Unknown Completed [facility] TD, NOS Unknown Completed [facility] HPV9 Unknown Completed [facility] DTaP, Unspecified Formulation Unknown Completed [facility] DTaP, Unspecified Formulation Unknown Completed [facility] DTaP, Unspecified Formulation Unknown Completed [facility] DTaP, Unspecified Formulation Unknown Completed [facility] HEPA,NOS Unknown Completed [facility] Hep B, Unspecified Formulation Unknown Completed [facility] Hep B, Unspecified Formulation Unknown Completed [facility] HEP B, Adult Dosage Unknown Completed [facility] MMR Unknown Completed [facility] MMR Unknown Completed [facility] Polio (IPV/OPV) Unknown Completed [facility] Polio (IPV/OPV) Unknown Completed [facility] Polio (IPV/OPV) Unknown Completed [facility] TD, NOS Unknown Completed [facility] Varicella (varivax)(chicken pox) Unknown Completed [facility] HPV9 Unknown Completed [facility] HPV9 Unknown Completed [facility] TDAP Unknown Completed [facility] Influenza Virus Vaccine Quad .5 mL IM 6+ MO (FLUZONE/FLULAVAL/F LUARIX) Unknown Completed [facility] TD, NOS Unknown Completed [facility] HPV9 Unknown Completed [facility] DTaP, Unspecified Formulation Unknown Completed [facility] DTaP, Unspecified Formulation Unknown Completed [facility] DTaP, Unspecified Formulation Unknown Completed [facility] DTaP, Unspecified Formulation Unknown Completed [facility] HEPA,NOS Unknown Completed [facility] Hep B, Unspecified Formulation Unknown Completed [facility] Hep B, Unspecified Formulation Unknown Completed [facility] HEP B, Adult Dosage Unknown Completed [facility] MMR Unknown Completed [facility] MMR Unknown Completed [facility] Polio (IPV/OPV) Unknown Completed [facility] Polio (IPV/OPV) Unknown Completed [facility] Polio (IPV/OPV) Unknown Completed [facility] TD, NOS Unknown Completed [facility] Varicella (varivax)(chicken pox) Unknown Completed [facility] HPV9 Unknown Completed [facility] HPV9 Unknown Completed [facility] TDAP Unknown Completed [facility] Influenza Virus Vaccine Quad .5 mL IM 6+ MO (FLUZONE/FLULAVAL/F LUARIX) Unknown Completed [facility] TD, NOS Unknown Completed [facility] HPV9 Unknown Completed [facility] DTaP, Unspecified Formulation Unknown Completed [facility] DTaP, Unspecified Formulation Unknown Completed [facility] DTaP, Unspecified Formulation Unknown Completed [facility] DTaP, Unspecified Formulation Unknown Completed [facility] HEPA,NOS Unknown Completed [facility] Hep B, Unspecified Formulation Unknown Completed [facility] Hep B, Unspecified Formulation Unknown Completed [facility] HEP B, Adult Dosage Unknown Completed [facility] MMR Unknown Completed [facility] MMR Unknown Completed [facility] Polio (IPV/OPV) Unknown Completed [facility] Polio (IPV/OPV) Unknown Completed [facility] Polio (IPV/OPV) Unknown Completed [facility] TD, NOS Unknown Completed [facility] Varicella (varivax)(chicken pox) Unknown Completed [facility] HPV9 Unknown Completed [facility] HPV9 Unknown Completed [facility] TDAP Unknown Completed [facility] Influenza Virus Vaccine Quad .5 mL IM 6+ MO (FLUZONE/FLULAVAL/F LUARIX) Unknown Completed [facility] TD, NOS Unknown Completed [facility] HPV9 Unknown Completed [facility] DTaP, Unspecified Formulation Unknown Completed [facility] DTaP, Unspecified Formulation Unknown Completed [facility] DTaP, Unspecified Formulation Unknown Completed [facility] DTaP, Unspecified Formulation Unknown Completed [facility] HEPA,NOS Unknown Completed [facility] Hep B, Unspecified Formulation Unknown Completed [facility] Hep B, Unspecified Formulation Unknown Completed [facility] HEP B, Adult Dosage Unknown Completed [facility] MMR Unknown Completed [facility] MMR Unknown Completed [facility] Polio (IPV/OPV) Unknown Completed [facility] Polio (IPV/OPV) Unknown Completed [facility] Polio (IPV/OPV) Unknown Completed [facility] TD, NOS Unknown Completed [facility] Varicella (varivax)(chicken pox) Unknown Completed [facility] HPV9 Unknown Completed [facility] HPV9 Unknown Completed [facility] TDAP Unknown Completed [facility] Influenza Virus Vaccine Quad .5 mL IM 6+ MO (FLUZONE/FLULAVAL/F LUARIX) Unknown Completed [facility] TD, NOS Unknown Completed [facility] DTaP, Unspecified Formulation Unknown Completed [facility] DTaP, Unspecified Formulation Unknown Completed [facility] DTaP, Unspecified Formulation Unknown Completed [facility] DTaP, Unspecified Formulation Unknown Completed [facility] HEPA,NOS Unknown Completed [facility] Hep B, Unspecified Formulation Unknown Completed [facility] Hep B, Unspecified Formulation Unknown Completed [facility] MMR Unknown Completed [facility] MMR Unknown Completed [facility] Polio (IPV/OPV) Unknown Completed [facility] Polio (IPV/OPV) Unknown Completed [facility] Polio (IPV/OPV) Unknown Completed [facility] TD, NOS Unknown Completed [facility] Varicella (varivax)(chicken pox) Unknown Completed [facility] DTaP, Unspecified Formulation Unknown Completed [facility] DTaP, Unspecified Formulation Unknown Completed [facility] DTaP, Unspecified Formulation Unknown Completed [facility] DTaP, Unspecified Formulation Unknown Completed [facility] HEPA,NOS Unknown Completed [facility] Hep B, Unspecified Formulation Unknown Completed [facility] Hep B, Unspecified Formulation Unknown Completed [facility] MMR Unknown Completed [facility] MMR Unknown Completed [facility] Polio (IPV/OPV) Unknown Completed [facility] Polio (IPV/OPV) Unknown Completed [facility] Polio (IPV/OPV) Unknown Completed [facility] TD, NOS Unknown Completed [facility] Varicella (varivax)(chicken pox) Unknown Completed [facility] HPV9 Unknown Completed [facility] DTaP, Unspecified Formulation Unknown Completed [facility] DTaP, Unspecified Formulation Unknown Completed [facility] DTaP, Unspecified Formulation Unknown Completed [facility] DTaP, Unspecified Formulation Unknown Completed [facility] HEPA,NOS Unknown Completed [facility] Hep B, Unspecified Formulation Unknown Completed [facility] Hep B, Unspecified Formulation Unknown Completed [facility] HEP B, Adult Dosage Unknown Completed [facility] MMR Unknown Completed [facility] MMR Unknown Completed [facility] Polio (IPV/OPV) Unknown Completed [facility] Polio (IPV/OPV) Unknown Completed [facility] Polio (IPV/OPV) Unknown Completed [facility] TD, NOS Unknown Completed [facility] Varicella (varivax)(chicken pox) Unknown Completed [facility] HPV9 Unknown Completed [facility] HPV9 Unknown Completed [facility] DTaP, Unspecified Formulation Unknown Completed [facility] DTaP, Unspecified Formulation Unknown Completed [facility] DTaP, Unspecified Formulation Unknown Completed [facility] DTaP, Unspecified Formulation Unknown Completed [facility] HEPA,NOS Unknown Completed [facility] Hep B, Unspecified Formulation Unknown Completed [facility] Hep B, Unspecified Formulation Unknown Completed [facility] HEP B, Adult Dosage Unknown Completed [facility] MMR Unknown Completed [facility] MMR Unknown Completed [facility] Polio (IPV/OPV) Unknown Completed [facility] Polio (IPV/OPV) Unknown Completed [facility] Polio (IPV/OPV) Unknown Completed [facility] TD, NOS Unknown Completed [facility] Varicella (varivax)(chicken pox) Unknown Completed [facility] HPV9 Unknown Completed [facility] HPV9 Unknown Completed [facility] DTaP, Unspecified Formulation Unknown Completed [facility] DTaP, Unspecified Formulation Unknown Completed [facility] DTaP, Unspecified Formulation Unknown Completed [facility] DTaP, Unspecified Formulation Unknown Completed [facility] HEPA,NOS Unknown Completed [facility] Hep B, Unspecified Formulation Unknown Completed [facility] Hep B, Unspecified Formulation Unknown Completed [facility] HEP B, Adult Dosage Unknown Completed [facility] MMR Unknown Completed [facility] MMR Unknown Completed [facility] Polio (IPV/OPV) Unknown Completed [facility] Polio (IPV/OPV) Unknown Completed [facility] Polio (IPV/OPV) Unknown Com[facility] [facility] TD, NOS Unknown Completed [facility] Varicella (varivax)(chicken pox) Unknown Completed [facility] HPV9 Unknown Completed [facility] HPV9 Unknown Completed [facility] HPV9 Unknown Completed [facility] DTaP, Unspecified Formulation Unknown Completed [facility] DTaP, Unspecified Formulation Unknown Completed [facility] DTaP, Unspecified Formulation Unknown Completed [facility] DTaP, Unspecified Formulation Unknown Completed [facility] HEPA,NOS Unknown Completed [facility] Hep B, Unspecified Formulation Unknown Completed [facility] Hep B, Unspecified Formulation Unknown Completed [facility] HEP B, Adult Dosage Unknown Completed [facility] MMR Unknown Completed [facility] MMR Unknown Completed [facility] Polio (IPV/OPV) Unknown Completed [facility] Polio (IPV/OPV) Unknown Completed [facility] Polio (IPV/OPV) Unknown Completed [facility] TD, NOS Unknown Completed [facility] Varicella (varivax)(chicken pox) Unknown Completed [facility] HPV9 Unknown Completed [facility] HPV9 Unknown Completed [facility] TDAP Unknown Completed [facility] Influenza Virus Vaccine Quad .5 mL IM 6+ MO (FLUZONE/FLULAVAL/F LUARIX) Unknown Completed [facility] HPV9 Unknown Completed [facility] DTaP, Unspecified Formulation Unknown Completed [facility] DTaP, Unspecified Formulation Unknown Completed [facility] DTaP, Unspecified Formulation Unknown Completed [facility] DTaP, Unspecified Formulation Unknown Completed [facility] HEPA,NOS Unknown Completed [facility] Hep B, Unspecified Formulation Unknown Completed [facility] Hep B, Unspecified Formulation Unknown Completed [facility] HEP B, Adult Dosage Unknown Completed [facility] MMR Unknown Completed [facility] MMR Unknown Completed [facility] Polio (IPV/OPV) Unknown Completed [facility] Polio (IPV/OPV) Unknown Completed [facility] Polio (IPV/OPV) Unknown Completed [facility] TD, NOS Unknown Completed [facility] Varicella (varivax)(chicken pox) Unknown Completed [facility] HPV9 Unknown Completed [facility] HPV9 Unknown Completed [facility] TDAP Unknown Completed [facility] Influenza Virus Vaccine Quad .5 mL IM 6+ MO (FLUZONE/FLULAVAL/F LUARIX) Unknown Completed [facility] HPV9 Unknown Completed [facility] DTaP, Unspecified Formulation Unknown Completed [facility] DTaP, Unspecified Formulation Unknown Completed [facility] DTaP, Unspecified Formulation Unknown Completed [facility] DTaP, Unspecified Formulation Unknown Completed [facility] HEPA,NOS Unknown Completed [facility] Hep B, Unspecified Formulation Unknown Completed [facility] Hep B, Unspecified Formulation Unknown Completed [facility] HEP B, Adult Dosage Unknown Completed [facility] MMR Unknown Completed [facility] MMR Unknown Completed [facility] Polio (IPV/OPV) Unknown Completed [facility] Polio (IPV/OPV) Unknown Completed [facility] Polio (IPV/OPV) Unknown Completed [facility] TD, NOS Unknown Completed [facility] Varicella (varivax)(chicken pox) Unknown Completed [facility] HPV9 Unknown Completed [facility] HPV9 Unknown Completed [facility] TDAP Unknown Completed [facility] Influenza Virus Vaccine Quad .5 mL IM 6+ MO (FLUZONE/FLULAVAL/F LUARIX) Unknown Completed [facility] HPV9 Unknown Completed [facility] DTaP, Unspecified Formulation Unknown Completed [facility] DTaP, Unspecified Formulation Unknown Completed [facility] DTaP, Unspecified Formulation Unknown Completed [facility] DTaP, Unspecified Formulation Unknown Completed [facility] HEPA,NOS Unknown Completed [facility] Hep B, Unspecified Formulation Unknown Completed [facility] Hep B, Unspecified Formulation Unknown Completed [facility] HEP B, Adult Dosage Unknown Completed [facility] MMR Unknown Completed [facility] MMR Unknown Completed [facility] Polio (IPV/OPV) Unknown Completed [facility] Polio (IPV/OPV) Unknown Completed [facility] Polio (IPV/OPV) Unknown Completed [facility] TD, NOS Unknown Completed [facility] Varicella (varivax)(chicken pox) Unknown Completed [facility] HPV9 Unknown Completed [facility] HPV9 Unknown Completed [facility] TDAP Unknown Completed [facility] Influenza Virus Vaccine Quad .5 mL IM 6+ MO (FLUZONE/FLULAVAL/F LUARIX) Unknown Completed [facility] TD, NOS Unknown Completed [facility] HPV9 Unknown Completed [facility] DTaP, Unspecified Formulation Unknown Completed [facility] DTaP, Unspecified Formulation Unknown Completed [facility] DTaP, Unspecified Formulation Unknown Completed [facility] DTaP, Unspecified Formulation Unknown Completed [facility] HEPA,NOS Unknown Completed [facility] Hep B, Unspecified Formulation Unknown Completed [facility] Hep B, Unspecified Formulation Unknown Completed [facility] HEP B, Adult Dosage Unknown Completed [facility] MMR Unknown Completed [facility] MMR Unknown Completed [facility] Polio (IPV/OPV) Unknown Completed [facility] Polio (IPV/OPV) Unknown Completed [facility] Polio (IPV/OPV) Unknown Completed [facility] TD, NOS Unknown Completed [facility] Varicella (varivax)(chicken pox) Unknown Completed [facility] HPV9 Unknown Completed [facility] HPV9 Unknown Completed [facility] TDAP Unknown Completed [facility] Influenza Virus Vaccine Quad .5 mL IM 6+ MO (FLUZONE/FLULAVAL/F LUARIX) Unknown Completed [facility] TD, NOS Unknown Completed [facility] HPV9 Unknown Completed [facility] DTaP, Unspecified Formulation Unknown Completed [facility] DTaP, Unspecified Formulation Unknown Completed [facility] DTaP, Unspecified Formulation Unknown Completed [facility] DTaP, Unspecified Formulation Unknown Completed [facility] HEPA,NOS Unknown Completed [facility] Hep B, Unspecified Formulation Unknown Completed [facility] Hep B, Unspecified Formulation Unknown Completed [facility] HEP B, Adult Dosage Unknown Completed [facility] MMR Unknown Completed [facility] MMR Unknown Completed [facility] Polio (IPV/OPV) Unknown Completed [facility] Polio (IPV/OPV) Unknown Completed [facility] Polio (IPV/OPV) Unknown Completed [facility] TD, NOS Unknown Completed [facility] Varicella (varivax)(chicken pox) Unknown Completed [facility] HPV9 Unknown Completed [facility] HPV9 Unknown Completed [facility] TDAP Unknown Completed [facility] Influenza Virus Vaccine Quad .5 mL IM 6+ MO (FLUZONE/FLULAVAL/F LUARIX) Unknown Completed [facility] TD, NOS Unknown Completed [facility] HPV9 Unknown Completed [facility] DTaP, Unspecified Formulation Unknown Completed [facility] DTaP, Unspecified Formulation Unknown Completed [facility] DTaP, Unspecified Formulation Unknown Completed [facility] DTaP, Unspecified Formulation Unknown Completed [facility] HEPA,NOS Unknown Completed [facility] Hep B, Unspecified Formulation Unknown Completed [facility] Hep B, Unspecified Formulation Unknown Completed [facility] HEP B, Adult Dosage Unknown Completed [facility] MMR Unknown Completed [facility] MMR Unknown Completed [facility] Polio (IPV/OPV) Unknown Completed [facility] Polio (IPV/OPV) Unknown Completed [facility] Polio (IPV/OPV) Unknown Completed [facility] TD, NOS Unknown Completed [facility] Varicella (varivax)(chicken pox) Unknown Completed [facility] HPV9 Unknown Completed [facility] HPV9 Unknown Completed [facility] TDAP Unknown Completed [facility] Influenza Virus Vaccine Quad .5 mL IM 6+ MO (FLUZONE/FLULAVAL/F LUARIX) Unknown Completed [facility] TD, NOS Unknown Completed [facility] HPV9 Unknown Completed [facility] DTaP, Unspecified Formulation Unknown Completed [facility] DTaP, Unspecified Formulation Unknown Completed [facility] DTaP, Unspecified Formulation Unknown Completed [facility] DTaP, Unspecified Formulation Unknown Completed [facility] HEPA,NOS Unknown Completed [facility] Hep B, Unspecified Formulation Unknown Completed [facility] Hep B, Unspecified Formulation Unknown Completed [facility] HEP B, Adult Dosage Unknown Completed [facility] MMR Unknown Completed [facility] MMR Unknown Completed [facility] Polio (IPV/OPV) Unknown Completed [facility] Polio (IPV/OPV) Unknown Completed [facility] Polio (IPV/OPV) Unknown Completed [facility] TD, NOS Unknown Completed [facility] Varicella (varivax)(chicken pox) Unknown Completed [facility] HPV9 Unknown Completed [facility] HPV9 Unknown Completed [facility] TDAP Unknown Completed [facility] Influenza Virus Vaccine Quad .5 mL IM 6+ MO (FLUZONE/FLULAVAL/F LUARIX) Unknown Completed [facility] TD, NOS Unknown Completed [facility] HPV9 Unknown Completed [facility] DTaP, Unspecified Formulation Unknown Completed [facility] DTaP, Unspecified Formulation Unknown Completed [facility] DTaP, Unspecified Formulation Unknown Completed [facility] DTaP, Unspecified Formulation Unknown Completed [facility] HEPA,NOS Unknown Completed [facility] Hep B, Unspecified Formulation Unknown Completed [facility] Hep B, Unspecified Formulation Unknown Completed [facility] HEP B, Adult Dosage Unknown Completed [facility] MMR Unknown Completed [facility] MMR Unknown Completed [facility] Polio (IPV/OPV) Unknown Completed [facility] Polio (IPV/OPV) Unknown Completed [facility] Polio (IPV/OPV) Unknown Completed [facility] TD, NOS Unknown Completed [facility] Varicella (varivax)(chicken pox) Unknown Completed [facility] HPV9 Unknown Completed [facility] HPV9 Unknown Completed [facility] TDAP Unknown Completed [facility] Influenza Virus Vaccine Quad .5 mL IM 6+ MO (FLUZONE/FLULAVAL/F LUARIX) Unknown Completed [facility] TD, NOS Unknown Completed [facility] HPV9 Unknown Completed [facility] DTaP, Unspecified Formulation Unknown Completed [facility] DTaP, Unspecified Formulation Unknown Completed [facility] DTaP, Unspecified Formulation Unknown Completed [facility] DTaP, Unspecified Formulation Unknown Completed [facility] HEPA,NOS Unknown Completed [facility] Hep B, Unspecified Formulation Unknown Completed [facility] Hep B, Unspecified Formulation Unknown Completed [facility] HEP B, Adult Dosage Unknown Completed [facility] MMR Unknown Completed [facility] MMR Unknown Completed [facility] Polio (IPV/OPV) Unknown Completed [facility] Polio (IPV/OPV) Unknown Completed [facility] Polio (IPV/OPV) Unknown Completed [facility] TD, NOS Unknown Completed [facility] Varicella (varivax)(chicken pox) Unknown Completed [facility] HPV9 Unknown Completed [facility] HPV9 Unknown Completed [facility] TDAP Unknown Completed [facility] Influenza Virus Vaccine Quad .5 mL IM 6+ MO (FLUZONE/FLULAVAL/F LUARIX) Unknown Completed [facility] TD, NOS Unknown Completed [facility] HPV9 Unknown Completed [facility] DTaP, Unspecified Formulation Unknown Completed [facility] DTaP, Unspecified Formulation Unknown Completed [facility] DTaP, Unspecified Formulation Unknown Completed [facility] DTaP, Unspecified Formulation Unknown Completed [facility] HEPA,NOS Unknown Completed [facility] Hep B, Unspecified Formulation Unknown Completed [facility] Hep B, Unspecified Formulation Unknown Completed [facility] HEP B, Adult Dosage Unknown Completed [facility] MMR Unknown Completed [facility] MMR Unknown Completed [facility] Polio (IPV/OPV) Unknown Completed [facility] Polio (IPV/OPV) Unknown Completed [facility] Polio (IPV/OPV) Unknown Completed [facility] TD, NOS Unknown Completed [facility] Varicella (varivax)(chicken pox) Unknown Completed [facility] HPV9 Unknown Completed [facility] HPV9 Unknown Completed [facility] TDAP Unknown Completed [facility] Influenza Virus Vaccine Quad .5 mL IM 6+ MO (FLUZONE/FLULAVAL/F LUARIX) Unknown Completed [facility] TD, NOS Unknown Completed [facility] HPV9 Unknown Completed [facility] DTaP, Unspecified Formulation Unknown Completed [facility] DTaP, Unspecified Formulation Unknown Completed [facility] DTaP, Unspecified Formulation Unknown Completed [facility] DTaP, Unspecified Formulation Unknown Completed [facility] HEPA,NOS Unknown Completed [facility] Hep B, Unspecified Formulation Unknown Completed [facility] Hep B, Unspecified Formulation Unknown Completed [facility] HEP B, Adult Dosage Unknown Completed [facility] MMR Unknown Completed [facility] MMR Unknown Completed [facility] Polio (IPV/OPV) Unknown Completed [facility] Polio (IPV/OPV) Unknown Completed [facility] Polio (IPV/OPV) Unknown Completed [facility] TD, NOS Unknown Completed [facility] Varicella (varivax)(chicken pox) Unknown Completed [facility] HPV9 Unknown Completed [facility] HPV9 Unknown Completed [facility] TDAP Unknown Completed [facility] Influenza Virus Vaccine Quad .5 mL IM 6+ MO (FLUZONE/FLULAVAL/F LUARIX) Unknown Completed [facility] TD, NOS Unknown Completed [facility] HPV9 Unknown Completed [facility] DTaP, Unspecified Formulation Unknown Completed [facility] DTaP, Unspecified Formulation Unknown Completed [facility] DTaP, Unspecified Formulation Unknown Completed [facility] DTaP, Unspecified Formulation Unknown Completed [facility] HEPA,NOS Unknown Completed [facility] Hep B, Unspecified Formulation Unknown Completed [facility] Hep B, Unspecified Formulation Unknown Completed [facility] HEP B, Adult Dosage Unknown Completed [facility] MMR Unknown Completed [facility] MMR Unknown Completed [facility] Polio (IPV/OPV) Unknown Completed [facility] Vital Signs Vital Name Observation Time Observation Value Comments S ource Systolic blood pressure 2023-10-18 14:45:00 139 mm[Hg] [facility] Diastolic blood pressure 2023-10-18 14:45:00 89 mm[Hg] [facility] Heart rate 2023-10-18 14:45:00 71 /min [facility] Body temperature 2023-10-18 14:45:00 36.39 Beti [facility] Respiratory rate 2023-10-18 14:45:00 18 /min [facility] Body height 2023-10-18 14:45:00 154.9 cm [facility] Body weight 2023-10-18 14:45:00 80.377 kg [facility] BMI 2023-10-18 14:45:00 33.48 kg/m2 [facility] Systolic blood pressure 2023-07-26 14:06:00 135 mm[Hg] [facility] Diastolic blood pressure 2023-07-26 14:06:00 86 mm[Hg] [facility] Heart rate 2023-07-26 14:06:00 92 /min [facility] Body temperature 2023-07-26 14:06:00 36.17 Beti [facility] Respiratory rate 2023-07-26 14:06:00 18 /min [facility] Body height 2023-07-26 14:06:00 154.9 cm [facility] Body weight 2023-07-26 14:06:00 77.973 kg [facility] BMI 2023-07-26 14:06:00 32.48 kg/m2 [facility] Systolic blood pressure 2023-06-17 18:39:00 122 mm[Hg] [facility] Diastolic blood pressure 2023-06-17 18:39:00 81 mm[Hg] [facility] Heart rate 2023-06-17 18:39:00 80 /min [facility] Body temperature 2023-06-17 18:39:00 36.44 Beti [facility] Respiratory rate 2023-06-17 18:39:00 17 /min [facility] Body height 2023-06-17 18:39:00 154.9 cm [facility] Body weight 2023-06-17 18:39:00 77.65 kg [facility] BMI 2023-06-17 18:39:00 32.35 kg/m2 [facility] Systolic blood pressure 2023-06-17 17:24:00 122 mm[Hg] [facility] Diastolic blood pressure 2023-06-17 17:24:00 81 mm[Hg] [facility] Heart rate 2023-06-17 17:24:00 80 /min [facility] Body temperature 2023-06-17 17:23:00 36.44 Beti [facility] Respiratory rate 2023-06-17 17:23:00 17 /min [facility] Body height 2023-06-17 17:23:00 154.9 cm [facility] Body weight 2023-06-17 17:23:00 77.65 kg [facility] BMI 2023-06-17 17:23:00 32.35 kg/m2 [facility] Systolic blood pressure 2023-06-17 17:20:00 122 mm[Hg] [facility] Diastolic blood pressure 2023-06-17 17:20:00 81 mm[Hg] [facility] Heart rate 2023-06-17 17:20:00 80 /min [facility] Body temperature 2023-06-17 17:19:00 36.44 Beti [facility] Respiratory rate 2023-06-17 17:19:00 17 /min [facility] Body height 2023-06-17 17:19:00 154.9 cm [facility] Body weight 2023-06-17 17:19:00 77.65 kg [facility] BMI 2023-06-17 17:19:00 32.35 kg/m2 [facility] Systolic blood pressure 2023-05-26 14:23:00 117 mm[Hg] [facility] Diastolic blood pressure 2023-05-26 14:23:00 83 mm[Hg] [facility] Heart rate 2023-05-26 14:23:00 93 /min [facility] Body temperature 2023-05-26 14:23:00 36.33 Beti [facility] Respiratory rate 2023-05-26 14:23:00 18 /min [facility] Body height 2023-05-26 14:23:00 154.9 cm [facility] Body weight 2023-05-26 14:23:00 77.021 kg [facility] BMI 2023-05-26 14:23:00 32.08 kg/m2 [facility] Systolic blood pressure 2023-05-03 16:00:00 133 mm[Hg] [facility] Diastolic blood pressure 2023-05-03 16:00:00 75 mm[Hg] [facility] Heart rate 2023-05-03 16:00:00 69 /min Unive [facility] Body temperature 2023-05-03 16:00:00 36.17 Beti [facility] Respiratory rate 2023-05-03 16:00:00 18 /min [facility] Body height 2023-05-03 16:00:00 154.9 cm [facility] Body weight 2023-05-03 16:00:00 77.747 kg [facility] BMI 2023-05-03 16:00:00 32.39 kg/m2 [facility] Body temperature 2023-02-26 15:00:00 36.44 Beti [facility] Systolic blood pressure 2023-02-08 14:18:00 129 mm[Hg] [facility] Diastolic blood pressure 2023-02-08 14:18:00 86 mm[Hg] [facility] Heart rate 2023-02-08 14:18:00 85 /min [facility] Body temperature 2023-02-08 14:18:00 36.56 Beti [facility] Respiratory rate 2023-02-08 14:18:00 16 /min [facility] Body height 2023-02-08 14:18:00 154.9 cm [facility] Body weight 2023-02-08 14:18:00 78.654 kg [facility] BMI 2023-02-08 14:18:00 32.76 kg/m2 [facility] Systolic blood pressure 2022-11-23 18:22:00 117 mm[Hg] [place] [facility] Diastolic blood pressure 2022-11-23 18:22:00 66 mm[Hg] [facility] Heart rate 2022-11-23 18:22:00 60 /min [facility] Body temperature 2022-11-23 18:22:00 36.72 Beti [facility] Respiratory rate 2022-11-23 18:22:00 20 /min [facility] Body height 2022-11-23 18:22:00 154.9 cm [facility] Body weight 2022-11-23 18:22:00 74.798 kg [facility] BMI 2022-11-23 18:22:00 31.16 kg/m2 [facility] Body temperature 2022-10-19 14:38:00 36.17 Beti [facility] Systolic blood pressure 2022-09-02 19:12:00 128 mm[Hg] [facility] Diastolic blood pressure 2022-09-02 19:12:00 82 mm[Hg] [facility] Heart rate 2022-09-02 19:12:00 80 /min Un[facility] Body temperature 2022-09-02 19:12:00 36.22 Beti [facility] Respiratory rate 2022-09-02 19:12:00 18 /min [facility] Body height 2022-09-02 19:12:00 154.9 cm [facility] Body weight 2022-09-02 19:12:00 77.202 kg [facility] BMI 2022-09-02 19:12:00 32.16 kg/m2 [facility] Systolic blood pressure 2022-08-17 17:53:00 133 mm[Hg] [place] [facility] Diastolic blood pressure 2022-08-17 17:53:00 79 mm[Hg] [facility] Heart rate 2022-08-17 17:53:00 85 /min [facility] Body temperature 2022-08-17 17:53:00 36 Beti [facility] Respiratory rate 2022-08-17 17:53:00 18 /min [facility] Body height 2022-08-17 17:53:00 154.9 cm [facility] Body weight 2022-08-17 17:53:00 77.293 kg [facility] BMI 2022-08-17 17:53:00 32.20 kg/m2 [facility] Systolic blood pressure 2022-05-19 19:30:00 114 mm[Hg] [facility] Diastolic blood pressure 2022-05-19 19:30:00 62 mm[Hg] [facility] Heart rate 2022-05-19 19:30:00 77 /min [facility] Body temperature 2022-05-19 19:30:00 36.39 Beti [facility] Respiratory rate 2022-05-19 19:30:00 17 /min [facility] Body height 2022-05-19 19:30:00 154.9 cm [facility] Body weight 2022-05-19 19:30:00 73.347 kg [facility] BMI 2022-05-19 19:30:00 30.55 kg/m2 [facility] Procedures Procedure Date / Time Performed Performing Clinician Source POCT URINALYSIS W/O SPECIFIC GRAVITY 2023-07-26 14:17:00 Mel Pacheco [facility] URINE CULTURE 2023-07-26 14:16:00 Mel Pacheco [facility] POCT TEST 2023-06-17 17:25:00 Vanessa Shaffer [facility] BCCS-RELATED DOCUMENTATION 2023-06-03 06:01:00 Doctor Unassigned, [place] [facility] ASSIGNMENT OF BENEFITS 2023-05-26 14:01:13 Docto r Unassigned, [place] [facility] "RWSP WILFRED ONLY" FLU VACC(), 6+ MONTHS, IM, QUAD (FLUZONE/FLULAVAL/FLUARI X) 2023-02-26 15:17:08 Mel Pacheco [facility] GARDASIL 9 (HPV 9V) VACCINE 2023-02-26 15:00:33 Mel Pacheco [facility] GARDASIL 9 (HPV 9V) VACCINE 2022-10-19 14:38:03 Mel Pacheco [facility] POCT TEST 2022-09-02 00:00:00 Tarun Pacheco [facility] GARDASIL 9 (HPV 9V) VACCINE 2022-08-17 18:37:16 Mel Pacheco [facility] POCT TEST 2022-08-17 18:27:00 Tarun Pacheco [facility] POCT TEST 2022-05-19 19:33:00 Mel Navas [facility] ASSIGNMENT OF BENEFITS 2022-05-19 18:52:41 Docto r Unassigned, [place] [facility] Encounters Start Date/Time End Date/Time Encounter Type Admission Type Attending Clinicians Care Facility Care Department Encounter ID Source 2024-05-26 08:15:00 2024-05-26 08:15:00 Outpatient R MEL PACHECO [facility] [id number] [facility] 2023-10-18 10:00:00 2023-10-18 10:00:00 Nurse Visit Visit, Ang-Rmchp Nurse Mel Pacheco [facility] LAMINATED PLASTICS ASSEMBLER AND GLUER [facility] 1.2.840.114 350.1.13.10 4.2.7.2.686 [id number] [facility] 2023-10-18 10:00:00 2023-10-18 09:55:03 Outpatient MEL CARR [facility] [id number] [facility] 2023-07-27 00:00:00 2023-08-28 18:07:12 Patient Secure Msg Doctor Unassigned, [place] [facility] 1.2.840.114 350.1.13.10 4.2.7.2.686 [id number] [facility] 2023-07-28 00:00:00 2023-08-28 18:05:25 Patient Secure Msg Doctor Unassigned, [place] [facility] 1.2840.114 350.1.13.10 4.2.7.2.686 [id number] [facility] 2023-07-29 00:00:00 2023-07-29 00:00:00 Telephone Tonya Shaffer [facility] LAMINATED PLAST[employer] ASSEMBLER AND GLUER [facility] & CHILD [facility] 1.2840.114 350.1.13.10 4.2.7.2.686 [id number] [facility] 2023-07-29 00:00:00 2023-07-29 00:00:00 Telephone Mel Pacheco [facility] LAMINATED PLAST[employer] ASSEMBLER AND GLUER [facility] & CHILD [facility] .2840.114 350.1.13.10 4.2.7.2.686 [id number] [facility] 2023-07-26 09:00:00 2023-07-26 09:07:32 Outpatient MEL CARR [facility] [id number] [facility] 2023-07-26 09:00:00 2023-07-26 09:07:32 Nurse Visit Visit, Ang-Rmchp Nurse Mel Pacheco [facility] LAMIN[employer] P[employer] ASSEMBLER AND GLUER [facility] & CHILD [facility] 1.2.840.114 350.1.13.10 4.2.7.2.686 [id number] 107 [id number] [facility] 2023-07-15 14:30:00 2023-07-15 14:30:00 Outpatient R [facility] [id number] [facility] 2023-06-21 00:00:00 2023-06-21 00:00:00 Telephone Tonya Shaffer [facility] LAMINATED P[employer] ASSEMBLER AND GLUER [facility] & CHILD [facility] 1..840.114 350.1.13.10 4.2.7.2.686 [id number] [facility] 2023-06-17 16:45:00 2023-06-17 16:45:00 Office Visit Tonya Shaffer [facility] LAMINATED P[employer] ASSEMBLER AND GLUER [facility] 1..840.114 350.1.13.10 4.2.7.2.686 [id number] 125 [id number] [facility] 2023-06-17 16:45:00 2023-06-17 14:11:46 Outpatient R TONYA SHAFFER [facility] [id number] [facility] 2023-06-17 13:30:00 2023-06-17 13:45:00 Nurse Visit Pea-Rmchp Nurse Vst, Fp Nrpt Pills Class Tonya Shaffer [facility] [facility] ..840.114 350.1.13.10 4.2.7.2.686 [id number] [facility] 2023-06-17 12:15:00 2023-06-17 13:17:53 Outpatient R TONYA SHAFFER [facility] [id number] [facility] 2023-06-17 12:15:00 2023-06-17 13:17:53 Office Visit Tonya Shaffer [facility] 1..840.114 350.1.13.10 4.2.7.2.686 [id number] [facility] 2023-06-17 00:00:00 2023-06-17 00:00:00 Telephone Tonya Shaffer [facility] LAMINATED PLAST[employer] ASSEMBLER AND GLUER [facility] & CHILD [facility] 1.2.840.114 350.1.13.10 4.2.7.2.686 [id number] [facility] 2023-06-17 00:00:00 2023-06-17 00:00:00 Patient Secure Msg Tonya Shaffer [facility] LAMINATED PLASTICS ASSEMBLER AND GLUER [facility] CHILD [facility] 1.840.114 350.1.13.10 4.2.7.2.686 [id number] [facility] 2023-06-03 08:00:00 2023-06-03 08:00:00 Outpatient R MEL PACHECO [facility] [id number] [facility] 2023-06-03 00:00:00 2023-06-03 00:00:00 Orders Only Doctor Unassigned, [place] [facility] 1.840.114 350.1.13.10 4.2.7.2.686 [id number] [facility] 2023-06-02 00:00:00 2023-06-02 00:00:00 Telephone Mel Pacheco [facility] LAMINATED PLAST[employer] ASSEMBLER AND GLUER [facility] & CHILD [facility] 1.840.114 350.1.13.10 4.2.7.2.686 [id number] [facility] 2023-05-28 00:00:00 2023-05-28 00:00:00 Telephone Mel Pacheco [facility] LAMINATED PLAST[employer] ASSEMBLER AND GLUER [facility] & CHILD [facility] 1.840.114 350.1.13.10 4.2.7.2.686 [id number] [facility] 2023-05-26 08:15:00 2023-05-26 09:19:19 Outpatient R MEL PACHECO [facility] [id number] [facility] 2023-05-26 08:15:00 2023-05-26 09:19:19 Office Visit Mel Pacheco [facility] LAMINATED PLAST[employer] ASSEMBLER AND GLUER [facility] & CHILD [facility] 1..840.114 350.1.13.10 4.2.7.2.686 [id number] [facility] 2023-05-26 00:00:00 2023-05-26 00:00:00 Orders Only Doctor Unassigned, [place] [facility] 1..840.114 350.1.13.10 4.2.7.2.686 [id number] [facility] 2023-05-20 13:30:00 2023-05-20 13:30:00 Outpatient R JAIMIE NAVAS [facility] [id number] [facility] 2023-05-03 10:00:00 2023-05-03 10:10:30 Outpatient R MEL PACHECO [facility] [id number] [facility] 2023-05-03 10:00:00 2023-05-03 10:10:30 Nurse Visit Visit, Mel Jimenez [facility] LAMINATED PLAST[employer] ASSEMBLER AND GLUER [facility] & CHILD [facility] 1..840.114 350.1.13.10 4.2.7.2.686 [id number] 107 [id number] [facility] 2023-02-26 08:30:00 2023-02-26 09:16:11 Outpatient R MEL PACHECO [facility] [id number] [facility] 2023-02-26 08:30:00 2023-02-26 09:16:11 Nurse Visit Visit, Mel Jimenez [facility] LAMINATED PLAST[employer] ASSEMBLER AND GLUER [facility] & CHILD [facility] 1.840.114 350.1.13.10 4.2.7.2.686 [id number] [facility] 2023-02-26 09:00:00 2023-02-26 09:15:00 Nurse Visit Nurse, Aston Santos Rgv Cprit Obgyn Mel Pacheco [facility] LAMIN[employer] P[employer] ASSEMBLER AND GLUER [facility] & CHILD [facility] 1..840.114 350.1.13.10 4.2.7.2.686 [id number] [facility] 2023-02-08 08:00:00 2023-02-08 08:27:02 Outpatient R MEL PACHECO [facility] [id number] [facility] 2023-02-08 08:00:00 2023-02-08 08:27:02 Nurse Visit Visit, Mel Jimenez [facility] LAMINATED PLASTICS ASSEMBLER AND GLUER [facility] & CHILD [facility] .840.114 350.1.13.10 4.2.7.2.686 [id number] [facility] 2022-11-25 08:00:00 2022-11-25 08:00:00 Outpatient R VTCHARLEE [facility] [id number] [facility] 2022-11-23 14:00:00 2022-11-23 14:00:00 Nurse Visit Visit, Mel Jimenez [facility] LAMINATED PLAST[employer] ASSEMBLER AND GLUER [facility] CHILD [facility] ..840.114 350.1.13.10 4.2.7.2.686 [id number] [facility] 2022-11-23 14:00:00 2022-11-23 13:30:01 Outpatient R MEL PACHECO [facility] [id number] [facility] 2022-11-09 00:00:00 2022-11-09 00:00:00 Telephone Mel Pacheco LAMIN[employer] P[employer] ASSEMBLER AND GLUER [facility] & CHILD [facility] 1..840.114 350.1.13.10 4.2.7.2.686 [id number] 107 [id number] [facility] 2022-10-21 10:57:47 2022-10-21 10:57:47 Outpatient [facility] [id number] Irineo Gann 2022-10-19 10:41:45 2022-10-19 10:41:45 Outpatient [facility] [id number] Irineo Gann 2022-10-19 10:00:00 2022-10-19 10:15:00 [facility] Mel Pacheco [facility] LAMINATED PLASTICS ASSEMBLER AND GLUER [facility] & CHILD [facility] 1..840.114 350.1.13.10 4.2.7.2.686 [id number] [facility] 2022-10-19 10:00:00 2022-10-19 10:00:00 Outpatient R MEL PACHECO [facility] [id number] [facility] 2022-09-02 14:15:00 2022-09-02 15:01:16 Outpatient R MEL PACHECO [facility] [id number] [facility] 2022-09-02 14:15:00 2022-09-02 15:01:16 Office Visit Mel Pacheco [facility] LAMINATED PLASTICS ASSEMBLER AND GLUER [facility] & CHILD [facility] 1..840.114 350.1.13.10 4.2.7.2.686 [id number] [facility] 2022-09-02 14:15:00 2022-09-02 14:15:00 Outpatient R MEL PACHECO [facility] [id number] [facility] 2022-08-17 13:15:00 2022-08-17 13:43:15 Outpatient R MEL PACHECO [facility] [id number] [facility] 2022-08-17 13:15:00 2022-08-17 13:43:15 Office Visit Mel Pacheco [facility] LAMINATED PLASTICS ASSEMBLER AND GLUER [facility] & CHILD [facility] 1.2840.114 350.1.13.10 4.2.7.2.686 [id number] [facility] 2022-08-17 13:15:00 2022-08-17 13:15:00 Outpatient R MEL PACHECO [facility] [id number] [facility] 2022-05-28 00:00:00 2022-05-28 00:00:00 Telephone Mel Pacheco [facility] LAMINATED PLASTICS ASSEMBLER AND GLUER [facility] CHILD [facility] 1.2840.114 350.1.13.10 4.2.7.2.686 [id number] [facility] 2022-05-21 00:00:00 2022-05-21 00:00:00 Patient Secure Msg Doctor Unassigned, [place] [facility] 1.20.114 350.1.13.10 4.2.7.2.686 [id number] [facility] 2022-05-21 00:00:00 2022-05-21 00:00:00 Telephone Mel Pacheco [facility] LAMINATED PLASTICS ASSEMBLER AND GLUER [facility] 1.840.114 350.1.13.10 4.2.7.2.686 [id number] [facility] 2022-05-20 00:00:00 2022-05-20 00:00:00 Patient Secure Msg Doctor Unassigned, [place] [facility] 1.2840.114 350.1.13.10 4.2.7.2.686 [id number] [facility] 2022-05-20 00:00:00 2022-05-20 00:00:00 Telephone Provider, Nisha Fofana [facility] LAMINATED PLASTICS ASSEMBLER AND GLUER [facility] & CHILD [facility] 1.840.114 350.1.13.10 4.2.7.2.686 [id number] [facility] 2022-05-19 13:00:00 2022-05-19 14:38:15 Office Visit Provider, Jaimie Mcdaniel [facility] LAMINATED PLASTICS ASSEMBLER AND GLUER [facility] CHILD [facility] 1.840.114 350.1.13.10 4.2.7.2.686 [id number] [facility] 2022-05-19 13:00:00 2022-05-19 14:38:15 Outpatient R JAIMIE NAVAS [facility] [id number] [facility] 2022-05-19 00:00:00 2022-05-19 00:00:00 Orders Only Doctor Unassigned, [place] [facility] 1.840.114 350.1.13.10 4.2.7.2.686 [id number] [facility] Results Test Description Test Time Test Comments Results Result Co mments [facility] w[facility]o Specific [id number] 14:18:00* Test Item Value Reference Range Interpretation Comme nts POCT PH U (test code = 3254) 5 mg/dl 5-8 POCT U LEUK EST (test code = 3263) negative Negative - Negative POCT U NIT (test code = 3262) negative Negative - Negati ve POCT U PROT (test code = 3259) trace Negative - Negat flaquito POCT U GLU (test code = 3256) negative Negative - Negati ve POCT U KETONE (test code = 3258) negative Negative - Neg ative POCT U BLD (test code = 3257) negative Negative - Negati ve [facility] [id number] 17:25:00* Test Item Value Reference Range Interpretation Comme nts POCT PREG (test code = 1605) Negative On board controls acceptable with C Line (test code = 3574) Yes POCT PREG LOT # (test code = 3574) [id number] POCT PREG TEST DATE ( test code = 3576) 09/28/2024 Lab Interpretation (test cod e = [id number]) Normal [facility] [id number] 19:15:00* Test Item Value Reference Range Interpretation Comme nts POCT PREG (test code = 1605) Negative On board controls acceptable with C Line (test code = 3574) Yes POCT PREG LOT # (test code = 3575) POCT PREG TEST DATE ( test code = 3576) [facility] [id number] 19:15:00* Test Item Value Reference Range Interpretation Comme nts POCT PREG (test code = 1605) Negative On board controls acceptable with C Line (test code = 3574) Yes POCT PREG LOT # (test code = 3575) POCT PREG TEST DATE ( test code = 3576) [facility] [id number] 18:27:00* Test Item Value Reference Range Interpretation Comme nts POCT PREG (test code = 1605) Negative On board controls acceptable with C Line (test code = 3574) Yes POCT PREG LOT # (test code = 3575) POCT PREG TEST DATE ( test code = 3576) [facility] [id number] 18:27:00* Test Item Value Reference Range Interpretation Comme nts POCT PREG (test code = 1605) Negative On board controls acceptable with C Line (test code = 3574) Yes POCT PREG LOT # (test code = 3575) POCT PREG TEST DATE ( test code = 3576) [facility] [id number] 19:33:00* Test Item Value Reference Range Interpretation Comme nts POCT PREG (test code = 1605) Negative On board controls acceptable with C Line (test code = 3574) Yes POCT PREG LOT # (test code = 3575) POCT PREG TEST DATE ( test code = 3576) [facility] [id number] 19:33:00* Test Item Value Reference Range Interpretation Comme nts POCT PREG (test code = 1605) Negative On board controls acceptable with C Line (test code = 3574) Yes POCT PREG LOT # (test code = 3575) POCT PREG TEST DATE ( test code = 3576) [facility] Notes Date/Time Note Provider Source 2023-07-30 08:11:20 Called pt, discussed lab results, advised urine culture negative. Pt denies symptoms at this time. Pt verbalized understanding. Katarzyna Montana RN 07/30/23 8:11 AM T [facility] 2023-07-30 06:42:33 Duplicate encounter. Katarzyna Montana RN 07/30/23 6:42 AM T [facility] 2023-07-29 19:18:10 Patient calling requesting for someone to review urine culture and urinalysis results. Previous message was sent to [facility]. Wendy Kaplan [facility] 2023-07-29 14:50:02 Please contact pt to see which labs she wants to review. This pt is an [place] pt. I only saw her for the colposcopy. [facility] 2023-07-29 11:59:59 Copied from [facility] #[id number]. 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 Janny Grande RN 06/25/2023 2:32 PM Janny Cooper RN [facility] 2023-06-25 08:44:56 Please assist and close Lu Hernández [facility] 2023-06-21 10:28:07 Ki Hugo is a 32 year old female Pt wants to discuss lab results. Please call pt at [phone] (home) [facility] 2023-06-18 11:17:45 See other note T [facility] 2023-06-17 16:53:37 Ki Hugo is a 32 year old female identified via name/. Patient stated she received prescription of medication she inquired about (flagyl). Patient encouraged to call back if more guidance or assistance is needed. Patient verbalized understanding and denied further questions/concerns. Gena Sigala RN [facility] 2023-06-17 14:34:01 Ki Hugo is a 32 year old female Patient is calling states she was seen earlier today and was told a medication would be prescribed for her and sent to pharmacy. Nothing on file. Please advise. [phone] (home) [id number] [place] [id number] [facility] [address] Lorraine Trinh [facility] 2023-06-02 14:53:42 Patient informed of results and need for colpo. Patient informed will have to apply for BCCS. Informed pss will call to schedule for fs and will be scheduled with [facility]. [facility] 2023-06-02 13:51:14 Please notify the patient her pap results ASCUS +HPV the past 2 years she needs a colpo appt JOHN Honeycutt 06/02/2023 1:51 PM [facility] 2023-06-01 16:34:24 Copied from [facility] #[id number]. Topic: Clinical - Results >> Jun 01, 2023 4:33 PM Patient Perishable Freight Inspector wrote: Ki Hugo is a 32 year old female Patient requesting results, please call [phone] (home) SEWER Marlys Cole [facility] 2023-05-28 11:08:01 Patient wanted to know what her POC is for her pap smear. Informed her pap smear was still pending and takes about 2 weeks to result. Informed patient HPV was positive again but will have to wait for pap for POC, verbalized understanding. [facility] 2023-05-28 10:29:19 Copied from [facility] #[id number]. Topic: Clinical - Medical Advice >> May 28, 2023 10:27 AM Patient Perishable Freight Inspector wrote: Ki Hugo is a 32 year old female Requesting results clarification. Please call [phone] (home) SEWER Deepika Shah [facility] 2022-11-09 09:20:39 Formatting of this n ote might be different from the original. Resident rescheduled for 11/23, verbalized understanding. Dorota Phillips LVN [facility] 2022-11-09 09:12:34 Formatting of this n ote might be different from the original. Pt is requesting call back states has appointment for Depo on but has a new job and is only off on Mondays, so wants to come in on since we are close on . Please call [phone] (home) [employer] [facility]
--- NOTE | 2023-11-02 18:05 | ER ---
Nurse's Notes [facility] Name: Ki Portillo Age: 32 yrs Sex: Female : 1990 Arrival Date: 11/02/2023 Time: 15:30 Bed IW1 Private MD: Diagnosis: Fever, unspecified;Acute upper respiratory infection, unspecified;Cough Presentation: 11/01 15:42 Chief complaint: Patient states: Body aches, sore throat, congestion, headache. Onset nj1 Wednesday, getting worse. No OTC meds today. Coronavirus screen: Vaccine status: Patient reports receiving the 2nd dose of the covid vaccine. Ebola Screen: Patient denies travel to an Ebola-affected area in the 21 days before illness onset. Initial Sepsis Screen: Does the patient meet any 2 criteria? HR > 90 bpm. No. Patient's initial sepsis screen is negative. Does the patient have a suspected source of infection? No. Patient's initial sepsis screen is negative. Risk Assessment: Do you want to hurt yourself or someone else? Patient reports no desire to harm self or others. Onset of symptoms was October 30, 2023. 15:42 Method Of Arrival: Ambulatory nj 15:42 Acuity: CHARLIE 4 nj1 Triage Assessment: 15:45 General: Appears in no apparent distress. comfortable, Behavior is calm, cooperative, nj1 appropriate for age. Pain: Complains of pain in Generalized Pain currently is 8 out of 10 on a pain scale. Quality of pain is described as aching. Neuro: Level of Consciousness is awake, alert, obeys commands, Oriented to person, place, time, situation. Cardiovascular: Patient's skin is warm and dry. Respiratory: Airway is patent Respiratory effort is even, unlabored. Historical: - Allergies: 15:44 No Known Allergies; nj1 - PMHx: 15:44 None; nj1 - PSHx: 15:44 None; nj1 - Immunization history:: Client reports receiving the 2nd dose of the Covid vaccine. - Infectious Disease History:: Denies. - Social history:: Smoking status: Patient denies any tobacco usage or history of. Screenin:31 [facility] ED Fall Risk Assessment (Adult) History of falling in the last 3 months, ap3 including since admission No falls in past 3 months (0 pts) Confusion or Disorientation No (0 pts) Intoxicated or Sedated No (0 pts) Impaired Gait No (0 pts) Mobility Assist Device Used No (0 pt) Altered Elimination No (0 pt) Score/Fall Risk Level 0 - 2 = Low Risk Oriented to surroundings, Maintained a safe environment, Educated pt \T\ family on fall prevention, incl call for assistance when getting out of bed, Assessed \T\ reinforced patient's understanding of fall precautions, Provided non-skid footwear, Hourly rounding (assess needs \T\ fall precautionary measures) done, Used ambulatory aids as needed (educated on \T\ assisted with), Used gait belt as appropriate. Abuse screen: Denies threats or abuse. Nutritional screening: No deficits noted. Tuberculosis screening: No symptoms or risk factors identified. Vital Signs: 15:42 BP 134 / 79; Pulse 105; Resp 18; Temp 99.1(O); Pulse Ox 96% on R/A; Weight 80.29 kg; nj1 Height 5 ft. 1 in. ; Pain 8/10; 15:42 Body Mass Index 33.44 (80.29 kg, 154.94 cm) [facility] 15:42 Pain Scale: Adult [facility] ED Course: 15:34 Patient arrived in ED. im 15:38 Jeison Sun MD is Attending Physician. [facility] 15:44 Triage completed. [facility] 15:45 Arm band placed on right wrist. de1 18:04 Luis Armando Colunga DO is Referral Physician. shamika 18:31 No provider procedures requiring assistance completed. Patient did not have IV access ap3 during this emergency room visit. 18:32 Patient has correct armband on for positive identification. Provided Education on: ap3 discharge instructions. Administered Medications: No medications were administered Medication: 18:32 VIS not applicable for this client. ap3 Outcome: 18:05 Discharge ordered by . shamika 18:31 Discharged to home ambulatory, ap3 18:31 Condition: good 18:31 Discharge instructions given to patient, Instructed on discharge instructions, follow up and referral plans. medication usage, Demonstrated understanding of instructions, follow-up care, medications, Prescriptions given X 3, 18:32 Patient left the ED. ap3 Signatures: Jeison Sun MD MD cha Prokisch, Amanda, RN RN ap3 Digna Christensen RN RN de1 Georgia Mendoza
--- NOTE | 2023-11-02 18:05 | EDPHYS ---
Physician Documentation [facility] Name: Ki Portillo Age: 32 yrs Sex: Female : 1990 Arrival Date: 11/02/2023 Time: 15:30 Bed IW1 Private MD: ED Physician Jeison Sun HPI: 11/01 17:01 This 32 yrs old Female presents to ER via Ambulatory with complaints of Flu shamika Symptoms. 17:01 The patient or guardian reports cough, flu symptoms, arthralgias, low-grade fever, shamika myalgias. Onset: The symptoms/episode began/occurred 2 day(s) ago. Modifying factors: The symptoms are alleviated by nothing. the symptoms are aggravated by nothing. Associated signs and symptoms: The patient has no apparent associated signs or symptoms. Severity of symptoms: At their worst the symptoms were mild in the emergency department the symptoms are unchanged. The patient has not experienced similar symptoms in the past. Historical: - Allergies: 15:44 No Known Allergies; nj1 - PMHx: 15:44 None; nj1 - PSHx: 15:44 None; nj1 - Immunization history:: Client reports receiving the 2nd dose of the Covid vaccine. - Infectious Disease History:: Denies. - Social history:: Smoking status: Patient denies any tobacco usage or history of. ROS: 17:03 Constitutional: Negative for fever, chills, and weight loss, Eyes: Negative for injury, shamika pain, redness, and discharge, ENT: Negative for injury, pain, and discharge, Neck: Negative for injury, pain, and swelling, Cardiovascular: Negative for chest pain, palpitations, and edema, Abdomen/GI: Negative for abdominal pain, nausea, vomiting, diarrhea, and constipation, Back: Negative for injury and pain, : Negative for injury, bleeding, discharge, and swelling, MS/Extremity: Negative for injury and deformity, Skin: Negative for injury, rash, and discoloration, Neuro: Negative for headache, weakness, numbness, tingling, and seizure, Psych: Negative for depression, anxiety, suicide ideation, homicidal ideation, and hallucinations, Allergy/Immunology: Negative for hives, rash, and allergies, Endocrine: Negative for neck swelling, polydipsia, polyuria, polyphagia, and marked weight changes, Hematologic/Lymphatic: Negative for swollen nodes, abnormal bleeding, and unusual bruising, 17:03 Respiratory: Positive for cough, with no reported sputum, Exam: 17:03 Constitutional: This is a well developed, well nourished patient who is awake, alert, shamika and in no acute distress. Head/Face: Normocephalic, atraumatic. Eyes: Pupils equal round and reactive to light, extra-ocular motions intact. Lids and lashes normal. Conjunctiva and sclera are non-icteric and not injected. Cornea within normal limits. Periorbital areas with no swelling, redness, or edema. ENT: Nares patent. No nasal discharge, no septal abnormalities noted. Tympanic membranes are normal and external auditory canals are clear. Oropharynx with no redness, swelling, or masses, exudates, or evidence of obstruction, uvula midline. Mucous membranes moist. Neck: Trachea midline, no thyromegaly or masses palpated, and no cervical lymphadenopathy. Supple, full range of motion without nuchal rigidity, or vertebral point tenderness. No Meningismus. Chest/axilla: Normal chest wall appearance and motion. Nontender with no deformity. No lesions are appreciated. Cardiovascular: Regular rate and rhythm with a normal S1 and S2. No gallops, murmurs, or rubs. Normal PMI, no JVD. No pulse deficits. Respiratory: Lungs have equal breath sounds bilaterally, clear to auscultation and percussion. No rales, rhonchi or wheezes noted. No increased work of breathing, no retractions or nasal flaring. Abdomen/GI: Soft, non-tender, with normal bowel sounds. No distension or tympany. No guarding or rebound. No evidence of tenderness throughout. Back: No spinal tenderness. No costovertebral tenderness. Full range of motion. Skin: Warm, dry with normal turgor. Normal color with no rashes, no lesions, and no evidence of cellulitis. MS/ Extremity: Pulses equal, no cyanosis. Neurovascular intact. Full, normal range of motion. Neuro: Awake and alert, GCS 15, oriented to person, place, time, and situation. Cranial nerves II-XII grossly intact. Motor strength 5/5 in all extremities. Sensory grossly intact. Cerebellar exam normal. Normal gait. Psych: Awake, alert, with orientation to person, place and time. Behavior, mood, and affect are within normal limits. 17:03 Musculoskeletal/extremity: DVT Exam: No signs of deep vein thrombosis. no pain, no swelling, no tenderness, negative Homans' sign noted on exam, no appreciated bluish discoloration, no erythema, no increased warmth, Vital Signs: 15:42 BP 134 / 79; Pulse 105; Resp 18; Temp 99.1(O); Pulse Ox 96% on R/A; Weight 80.29 kg; nj1 Height 5 ft. 1 in. ; Pain 8/10; 15:42 Body Mass Index 33.44 (80.29 kg, 154.94 cm) [facility] 15:42 Pain Scale: Adult nj MDM: 15:38 Patient medically screened. shamika 17:04 Differential diagnosis: obstructed airway, tracheal injury, bronchitis, flu, URI, viral shamika Infection, bacterial infection, bronchitis, pneumonia UTI, gastroenteritis. Antibiotic administration: The patient is discharged and will get outpatient antibiotics, Zithromax. Differential Diagnosis altered mental status, sepsis, flu. Data reviewed: vital signs, nurses notes, lab test result(s), Flu: negative. Consideration of Admission/Observation Escalation of care including admission/observation considered. I considered the following discharge prescriptions or medication management in the emergency department Medications were administered in the Emergency Department. See MAR. Test considered but Not performed: Labs: no cbc , no comp met. Historians other than the Patient: pt well informed. Care significantly affected by the following chronic conditions: none. Counseling: I had a detailed discussion with the patient and/or guardian regarding the historical points, exam findings, and any diagnostic results supporting the discharge/admit diagnosis, lab results, the need for outpatient follow up, for definitive care, a family practitioner. 18:04 Patient medically screened. shamika 11/01 16:56 Order name: PO challenge shamika Administered Medications: No medications were administered Disposition Summary: 11/02/23 18:05 Discharge Ordered Notes: Location: Home shamika Problem: new shamika Symptoms: have improved shamika Condition: Stable shamika Diagnosis - Fever, unspecified shamika - Acute upper respiratory infection, unspecified shamika - Cough shamika Followup: shamika - With: Private Physician - When: 2 - 3 days - Reason: Recheck today's complaints, Continuance of care, Re-evaluation by your physician Followup: shamika - With: Luis Armando Colunga DO - When: 2 - 3 days - Reason: Recheck today's complaints, Continuance of care, Re-evaluation by your physician Discharge Instructions: - Discharge Summary Sheet [facility] - Fever, Adult shamika - Upper Respiratory Infection, Adult shamika - Cool Mist Vaporizer shamika - Upper Respiratory Infection, Adult, [id number]-[id number] shamika - Cough, Adult, [id number] shamika - Viral Respiratory Infection, [id number] shamika - Cough, Adult [facility] Forms: - Medication Reconciliation Form [facility] - Antibiotic Education [facility] - Prescription Opioid Use [facility] - Patient Portal Instructions [facility] - Leadership Thank You Letter [facility] Prescriptions: - Maria A-D 12 Hour 60-120 mg Oral Tablet Sustained Release 12 hr - take 1 tablet ORAL route every 12 hours As needed; 20 tablet; Refills: 0, [facility] Product Selection Permitted - Tessalon Perles 100 mg Oral capsule - take 2 capsule ORAL route every 8 hours As needed; 30 capsule; Refills: 0, [facility] Product Selection Permitted - Zithromax 500 mg Oral Tablet - take 1 tablet ORAL route once daily for 5 days; 5 tablet; Refills: 0, Product [facility] Selection Permitted Signatures: Dispatcher [employer] EDMS Jeison Sun MD MD cha Jaco, Norma, RN RN nj1 Corrections: (The following items were deleted from the chart) 17:06 17:06 Influenza Screen (A \T\ B)+BA.LAB.BRZ ordered. EDMS EDMS 17:06 17:06 SARS-COV-2 Antigen Rapid+I.LAB.BRZ ordered. EDMS EDMS 17:06 17:06 Group A Streptococcus Rapid Sc+BA.LAB.BRZ ordered. EDMS EDMS
[2023-11-03 05:45] VITALS: BP 134/79; TEMP 99.1; O2SAT 96
== END 2023-11-02 18:32 | disposition home or self-care (01) ==
LOC: ER 15:30
DX: J06.9 Acute upper respiratory infection, unspecified (principal); R05.9 Cough, unspecified
CPT/HCPCS: 99283

== ENCOUNTER 2025-01-20 19:23 | Emergency (ER) | payer SELFPAY ==
[2025-01-20 20:20] LABS: Influenza A Ag Negative; Influenza B Ag Negative; SARS-CoV-2 Antigen Rapid Res Negative (Negative)
--- NOTE | 2025-01-20 20:32 | EDPHYS ---
Physician Documentation [facility] Name: Ki Portillo Age: 34 yrs Sex: Female : 1990 Arrival Date: 01/20/2025 Time: 19:23 Bed 7 Private MD: ED Physician Damien Colunga HPI: 01/20 19:39 This 34 yrs old Female presents to ER via Ambulatory with complaints of Flu sp3 Symptoms. 19:39 34-year-old female with history of psoriasis now presents with upper respiratory sp3 congestion, runny nose, and "hot breathing". She denies any fever, cough, mucus production, chest pain, back pain, or any other signs or symptoms on ROS at this time.. 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 - Infectious Disease History:: Denies. - Social history:: Smoking status: Patient denies any tobacco usage or history of. ROS: 19:41 Constitutional: Negative for fever, chills, and weight loss, Eyes: Negative for injury, sp3 pain, redness, and discharge, Neck: Negative for injury, pain, and swelling, Cardiovascular: Negative for chest pain, palpitations, and edema, Abdomen/GI: Negative for abdominal pain, nausea, vomiting, diarrhea, and constipation, Back: Negative for injury and pain, MS/Extremity: Negative for injury and deformity, Skin: Negative for injury, rash, and discoloration, Neuro: Negative for headache, weakness, numbness, tingling, and seizure, Psych: Negative for depression, anxiety, suicide ideation, homicidal ideation, and hallucinations, Allergy/Immunology: Negative for hives, rash, and allergies, Endocrine: Negative for neck swelling, polydipsia, polyuria, polyphagia, and marked weight changes, Hematologic/Lymphatic: Negative for swollen nodes, abnormal bleeding, and unusual bruising, 19:41 All other systems are negative, Exam: 19:41 Constitutional: This is a well developed, well nourished patient who is awake, alert, sp3 and in no acute distress. Head/Face: Normocephalic, atraumatic. Eyes: Pupils equal round and reactive to light, extra-ocular motions intact. Lids and lashes normal. Conjunctiva and sclera are non-icteric and not injected. Cornea within normal limits. Periorbital areas with no swelling, redness, or edema. ENT: Nares patent. No nasal discharge, no septal abnormalities noted. External auditory canals are clear. Oropharynx with no redness, swelling, or masses, exudates, or evidence of obstruction, uvula midline. Mucous membranes moist. Neck: Trachea midline, no thyromegaly or masses palpated, and no cervical lymphadenopathy. Supple, full range of motion without nuchal rigidity, or vertebral point tenderness. No Meningismus. Chest/axilla: Normal chest wall appearance and motion. Nontender with no deformity. No lesions are appreciated. Cardiovascular: Regular rate and rhythm with a normal S1 and S2. No gallops, murmurs, or rubs. Normal PMI, no JVD. No pulse deficits. Respiratory: Lungs have equal breath sounds bilaterally, clear to auscultation and percussion. No rales, rhonchi or wheezes noted. No increased work of breathing, no retractions or nasal flaring. Abdomen/GI: Soft, non-tender, with normal bowel sounds. No distension or tympany. No guarding or rebound. No evidence of tenderness throughout. Back: No spinal tenderness. No costovertebral tenderness. Full range of motion. Skin: Warm, dry with normal turgor. Normal color with no rashes, no lesions, and no evidence of cellulitis. MS/ Extremity: Pulses equal, no cyanosis. Neurovascular intact. Full, normal range of motion. Neuro: Awake and alert, GCS 15, oriented to person, place, time, and situation. Cranial nerves II-XII grossly intact. Motor strength 5/5 in all extremities. Sensory grossly intact. Cerebellar exam normal. Normal gait. Psych: Awake, alert, with orientation to person, place and time. Behavior, mood, and affect are within normal limits. Vital Signs: 19:32 BP 134 / 94; Pulse 84; Resp 17; Temp 99.4; Pulse Ox 99% ; Weight 80.74 kg; Height 5 ft. bp 1 in. ; Pain 5/10; 19:32 Body Mass Index 33.63 (80.74 kg, 154.94 cm) bp 19:32 Pain Scale: Adult bp [place] Coma Score: 19:37 Eye Response: spontaneous(4). Motor Response: obeys commands(6). Verbal Response: bp oriented(5). Total: 15. MDM: 19:27 Medical Screening Exam initiated sp3 19:41 Data reviewed: vital signs, nurses notes, lab test result(s). ED course: 34-year-old sp3 female with flulike symptoms. Differential diagnosis includes viral illness, COVID-19, influenza, strep pharyngitis, Bogardus, pneumonia. Pneumonia has been ruled out clinically. Chest x-ray not indicated. Swabs and strep screen pending. Disposition pending workup and patient course with supportive care and OTC meds only if all workup is negative.. 01/20 19:34 Order name: COVID-19 Ag + Flu A+B Ag; Complete Time: 20:31 sp3 01/20 19:34 Order name: Group A Streptococcus Rapid; Complete Time: 20:16 sp3 01/20 20:18 Order name: Throat Culture EDMS Administered Medications: No medications were administered Disposition Summary: 01/20/25 20:31 Discharge Ordered Notes: Location: Home sp3 Condition: Stable sp3 Diagnosis - Upper respiratory infection, viral illness sp3 Followup: sp3 - With: Private Physician - When: Upon discharge from the Emergency Department - Reason: Continuance of care Discharge Instructions: - Discharge Summary Sheet sp3 - Upper Respiratory Infection, Adult, [id number] sp3 Forms: - Medication Reconciliation Form sp3 - Antibiotic Education sp3 - Prescription Opioid Use sp3 - Patient Portal Instructions sp3 - Leadership Thank You Letter sp3 Prescriptions: - Tessalon Perles 100 mg Oral Capsule - take 1 capsule ORAL route every 8 hours As needed; 15 capsule; Refills: 0, sp3 Product Selection Permitted Signatures: Dispatcher [employer] EDMS Domingo Martinez RN RN bp Patel, Setul, MD MD sp3
--- NOTE | 2025-01-20 20:32 | ER ---
Nurse's Notes [facility] Name: Ki Portillo Age: 34 yrs Sex: Female : 1990 Arrival Date: 01/20/2025 Time: 19:23 Bed 7 Private MD: Diagnosis: Upper respiratory infection, viral illness Presentation: 01/20 19:32 Chief complaint: Patient states: Today this morning i started having body aches sore bp throat and nasal congestion. Coronavirus screen: Vaccine status: Patient reports receiving the 2nd dose of the covid vaccine. congestion, fatigue, headache, muscle pain, runny nose. Ebola Screen: Patient negative for fever greater than or equal to 101.5 degrees Fahrenheit, and additional compatible Ebola Virus Disease symptoms Patient denies exposure to infectious person. Patient denies travel to an Ebola-affected area in the 21 days before illness onset. No symptoms or risks identified at this time. Initial Sepsis Screen: Does the patient meet any 2 criteria? No. Patient's initial sepsis screen is negative. Does the patient have a suspected source of infection? No. Patient's initial sepsis screen is negative. Risk Assessment: Do you want to hurt yourself or someone else? Patient reports no desire to harm self or others. Onset of symptoms was January 20, 2025 at 09:00. 19:32 Method Of Arrival: Ambulatory bp 19:32 Acuity: CHARLIE 4 bp Triage Assessment: 19:34 General: Appears in no apparent distress. comfortable, Behavior is calm, cooperative, bp appropriate for age. Pain: Complains of pain in generalized body aches. EENT: Nares with drainage noted Oral mucosa is moist. Throat is reddened bilaterally with gag reflex present. Neuro: No deficits noted. Cardiovascular: No deficits noted. Respiratory: No deficits noted. GI: No deficits noted. : No deficits noted. Derm: No deficits noted. Musculoskeletal: Reports Pain is 6 out of 10 on a pain scale. generalized muscle and body aches. [employer]: 19:34 LMP N/A - Depo-provera, Not bp Historical: - Allergies: 19:34 No Known Allergies; bp - Home Meds: 19:34 None [Active]; bp - PMHx: 19:34 psorasis; bp - PSHx: 19:34 None; bp - Immunization history:: Adult Immunizations up to date. - Infectious Disease History:: Denies. - Social history:: Smoking status: Patient denies any tobacco usage or history of. Screenin:37 [facility] ED Fall Risk Assessment (Adult) History of falling in the last 3 months, bp including since admission No falls in past 3 months (0 pts) Confusion or Disorientation No (0 pts) Intoxicated or Sedated No (0 pts) Impaired Gait No (0 pts) Mobility Assist Device Used No (0 pt) Altered Elimination No (0 pt) Score/Fall Risk Level 0 - 2 = Low Risk Oriented to surroundings, Maintained a safe environment, Educated pt \T\ family on fall prevention, incl call for assistance when getting out of bed, Assessed \T\ reinforced patient's understanding of fall precautions, Hourly rounding (assess needs \T\ fall precautionary measures) done, Used ambulatory aids as needed (educated on \T\ assisted with), Used gait belt as appropriate. Abuse screen: Denies threats or abuse. Nutritional screening: No deficits noted. Tuberculosis screening: No symptoms or risk factors identified. Assessment: 19:37 Reassessment: see triage assessment. bp Vital Signs: 19:32 BP 134 / 94; Pulse 84; Resp 17; Temp 99.4; Pulse Ox 99% ; Weight 80.74 kg; Height 5 ft. bp 1 in. ; Pain 5/10; 19:32 Body Mass Index 33.63 (80.74 kg, 154.94 cm) bp 19:32 Pain Scale: Adult bp [place] Coma Score: 19:37 Eye Response: spontaneous(4). Motor Response: obeys commands(6). Verbal Response: bp oriented(5). Total: 15. ED Course: 19:26 Patient arrived in ED. im 19:26 Damien Colunga MD is Attending Physician. sp3 19:32 Domingo Martinez, BUCKY is Primary Nurse. bp 19:34 Triage completed. bp 19:34 Arm band placed on right wrist. bp 19:37 Patient has correct armband on for positive identification. Bed in low position. Call bp light in reach. Side rails up X 1. Adult w/ patient. Client placed on continuous cardiac and pulse oximetry monitoring. NIBP monitoring applied. Pulse ox on. NIBP on. Door closed. Noise minimized. Pillow given. Verbal reassurance given. Head of bed elevated. 19:37 No provider procedures requiring assistance completed. COVID swab sent to lab. Flu bp and/or RSV swab sent to lab. Strep swab sent to lab. Patient maintains SpO2 saturation greater than 95% on room air. 20:51 Provided Education on: f/u with PCP, take OTC medications for symptoms. vc1 20:51 Patient did not have IV access during this emergency room visit. vc1 Administered Medications: No medications were administered Medication: 19:37 VIS not applicable for this client. bp Outcome: 20:31 Discharge ordered by . sp3 20:51 Discharged to home ambulatory, vc1 20:51 Condition: stable 20:51 Discharge instructions given to patient, Instructed on discharge instructions, follow up and referral plans. medication usage, Demonstrated understanding of instructions, follow-up care, medications, Prescriptions given X 1, 20:52 Patient left the ED. vc1 Signatures: Domingo Martinez, RN RN bp Damien Colunga MD MD sp3 Argenis Sims RN RN vc1 Georgia Mendoza im
[2025-01-20 21:03] VITALS: BP 134/94; TEMP 99.4; O2SAT 99
== END 2025-01-20 20:52 | disposition home or self-care (01) ==
LOC: ER 19:23
DX: J06.9 Acute upper respiratory infection, unspecified (principal); Z11.52 Encounter for screening for COVID-19
CPT/HCPCS: 36415; 87070; 87428; 99284